=== PATIENT | female | born 1950 | race Caucasian/White ===

== ENCOUNTER 2022-08-01 12:32 | Emergency (ER) | payer OTHER, SELFPAY ==
[2022-08-01 12:47] VITALS: BP 145/86; PULSE 75; RESP 18; TEMP 36.8; O2SAT 98; BMI 28.5
--- NOTE | 2022-08-01 15:13 | ED.NAVMDI ---
HPI - Nausea/Vomiting/Diarrhea General Date Seen: 08/01/22 <Amando Hardwick MD - Last Filed: 08/02/22 20:45> Chief complaint: Nausea/Vomiting <Amando Hardwick MD - Last Filed: 08/02/22 20:45> Stated complaint: Vomiting Headache <Amando Hardwick MD - Last Filed: 08/02/22 20:45> Time Seen by Provider: 08/01/22 14:45 <Amando Hardwick MD - Last Filed: 08/02/22 20:45> Source: patient and family <Amando Hardwick MD - Last Filed: 08/02/22 20:45> Mode of arrival: ambulatory <Amando Hardwick MD - Last Filed: 08/02/22 20:45> Limitations: no limitations <Amando Hardwick MD - Last Filed: 08/02/22 20:45> History of Present Illness HPI Narrative: Patient is a nice 71-year-old female presents here with her sister who she lives with with a history of abdominal pain for 6 days. The pain started last Sunday, lasted only 3 days, but now is been replaced with and concurrently nausea and vomiting. She did have a normal bowel movement yesterday, tells me she is not passing gas, no fevers or chills, but feels very weak, she has vomited 3 times in the last 24 hours and just really does not want to eat anything. Slight headache associated with this across her orthodoxy region, she feels that this is more related to the vomiting however and is feeling weak. She called the [facility] and they directed her to the ER soon as they her that she had a headache. She has been unable to take her medications for the last 2-3 days. She does have a history of a previous duodenal switch, gastric sleeve, for weight loss, and a subsequent hiatal hernia repair. Also has had a cholecystectomy and appendectomy, history of breast cancer, with treatment, and then breast reconstruction. <Amando Hardwick MD - Last Filed: 08/02/22 20:45> MD elicited complaint: nausea, vomiting and abdominal pain <Amando Hardwick MD - Last Filed: 08/02/22 20:45> Onset (ago): day(s) <Amando Hardwick MD - Last Filed: 08/02/22 20:45> Associated nausea: Yes <Amando Hardwick MD - Last Filed: 08/02/22 20:45> Location of pain: none <Amando Hardwick MD - Last Filed: 08/02/22 20:45> Radiation: diffuse <Amando Hardwick MD - Last Filed: 08/02/22 20:45> Related Data Home medications: Previous Rx's Medication Instructions Recorded benazepril 40 mg tablet 40 mg PO QDAY #30 tabs 01/04/22 venlafaxine 75 mg tablet 75 mg PO BID #60 tabs 01/04/22 tamoxifen 20 mg tablet 20 mg PO QDAY #90 tabs 03/27/22 ondansetron 4 mg disintegrating 4 mg PO Q8H PRN nausea and 08/01/22 tablet vomiting #10 tabs <Amando Hardwick MD - Last Filed: 08/02/22 20:45> Allergies/Adverse reactions: Allergies Allergy/AdvReac Type Severity Reaction Status Date / Time codeine Allergy Mild Headache Verified 08/01/22 15:47 <Amando Hardwick MD - Last Filed: 08/02/22 20:45> Review of Systems Status of ROS: Reports: 10 or more systems reviewed and unremarkable except as noted in History and below <Amando Hardwick MD - Last Filed: 08/02/22 20:45> GI: Reports: nausea <Amando Hardwick MD - Last Filed: 08/02/22 20:45> PFSH PFSH Medical History: Medical History Invasive ductal carcinoma of left breast Osteoporosis <Amando Hardwick MD - Last Filed: 08/02/22 20:45> Social History: Social History Smoking Status: Never smoker How often do you have a drink containing alcohol: monthly or less How often do you have six or more drinks on one occasion: Never AUDIT-C Alcohol total score: 1 Non-prescribed substance use: denies use service: No <Amando Hardwick MD - Last Filed: 08/02/22 20:45> Exam Narrative: Exam Narrative: Patient is seen in room 4, with her sister, she is in no apparent distress. Patient is speaking normally,no problem with slurring words, oriented x3. Head eyes ears nose and throat exam show equal pupils, no scleral icterus, extraocular muscles are normal, no facial droop, speech is normal, trachea normal and midline. Thyroid normal midline palpable not enlarged. Chest shows symmetrical rise bilaterally, normal auscultation with no wheezes, no increased work of breathing, no overt bruising or lesions seen, no tenderness is noted on auscultation. Heart sounds normal with no S3-S4 no murmurs clicks or gallops. Abdomen shows no obvious masses or hepatosplenomegaly, no organomegaly, bowel sounds are normal in all quadrants. No tenderness is noted also in all quadrants. Upper and lower extremities show normal power, normal range of motion, pulses are normal, sensations normal, fine motor movements are normal, pelvis is stable to rocking. Cervical spine shows normal range of motion, and palpably not tender. Thoracic spine shows normal range of motion, and palpably not tender, lumbar spine shows no tenderness to palpation percussion and is otherwise normal range of motion. Skin shows no rashes, petechiae or eccymosis. <Amando Hardwick MD - Last Filed: 08/02/22 20:45> Const: Vital Signs, click to edit/add: Vital Signs - 24 hr 08/01/22 12:47 08/01/22 17:28 Temperature 98.2 F Pulse Rate [Right Pulse Oximeter] 75 77 Respiratory Rate 18 16 Blood Pressure [Ri ght Upper Arm] 145/86 H 141/59 H Pulse Oximetry 98 99 Oxygen Delivery Me thod Room Air Room Air <Amando Hardwick MD - Last Filed: 08/02/22 20:45> Vital Signs, click to edit/add: Vital Signs - 24 hr 08/01/22 12:47 08/01/22 17:28 Temperature 98.2 F Pulse Rate [Right Pulse Oximeter] 75 77 Respiratory Rate 18 16 Blood Pressure [Ri ght Upper Arm] 145/86 H 141/59 H Pulse Oximetry 98 99 Oxygen Delivery Me thod Room Air Room Air <Cydney Lange MD - Last Filed: 08/01/22 18:43> Course Reevaluation(s) Reevaluation #1: Reviewed with patient the normal labs. Her headache is gone after IV fluids. She feels that she improved as far as abdominal pain when she quit eating, feels that she has been doing good with fluids orally. Reviewed that labs are very reassuring, her lack of abdominal pain is too. This may have been viral gastroenteritis process. They wondered about GERD, reviewed with them that this is doubtful to be presentation of this alone. Can have increased symptoms like GERD with other GI processes like gastroenteritis. We will try some broth and crackers; if she tolerates this, likely discharge to home with zofran for further period of observation. If not tolerating this, proceed with CT. <Cydney Lange MD - Last Filed: 08/01/22 18:43> Time: 17:40 <Cydney Lange MD - Last Filed: 08/01/22 18:43> Reevaluation #2: Patient tolerated the broth and crackers, is feeling fine. We will discharge to home with a prescription for Zofran. They have been counseled on signs and symptoms for return. <Cydney Lange MD - Last Filed: 08/01/22 18:43> Time: 18:40 <Cydney Lange MD - Last Filed: 08/01/22 18:43> Vital Signs Vital signs: Initial Vital Signs Temperature 98.2 F 08/01/22 12:47 Temperature Source Temporal Artery Scan 08/01/22 12:47 Pulse Rate 75 08/01/22 12:47 Respiratory Rate 18 08/01/22 12:47 Blood Pressure 145/86 H 08/01/22 12:47 Blood Pressure Mean 105 08/01/22 12:47 Blood Pressure Position Sitting 08/01/22 12:47 Pulse Oximetry 98 08/01/22 12:47 Oxygen Delivery Method 08/01/22 12:47 Vital Signs Temperature 98.2 F 08/01/22 12:47 Pulse Rate 75 08/01/22 12:47 Respiratory Rate 18 08/01/22 12:47 Blood Pressure 145/86 H 08/01/22 12:47 Pulse Oximetry 98 08/01/22 12:47 Oxygen Delivery Method 08/01/22 12:47 Temperature 98.2 F 08/01/22 12:47 Pulse Rate 77 08/01/22 17:28 Respiratory Rate 16 08/01/22 17:28 Blood Pressure 141/59 H 08/01/22 17:28 Pulse Oximetry 99 08/01/22 17:28 Oxygen Delivery Method 08/01/22 17:28 <Amando Hardwick MD - Last Filed: 08/02/22 20:45> Initial Vital Signs Temperature 98.2 F 08/01/22 12:47 Temperature Source Temporal Artery Scan 08/01/22 12:47 Pulse Rate 75 08/01/22 12:47 Respiratory Rate 18 08/01/22 12:47 Blood Pressure 145/86 H 08/01/22 12:47 Blood Pressure Mean 105 08/01/22 12:47 Blood Pressure Position Sitting 08/01/22 12:47 Pulse Oximetry 98 08/01/22 12:47 Oxygen Delivery Method 08/01/22 12:47 Vital Signs Temperature 98.2 F 08/01/22 12:47 Pulse Rate 75 08/01/22 12:47 Respiratory Rate 18 08/01/22 12:47 Blood Pressure 145/86 H 08/01/22 12:47 Pulse Oximetry 98 08/01/22 12:47 Oxygen Delivery Method 08/01/22 12:47 Temperature 98.2 F 08/01/22 12:47 Pulse Rate 77 08/01/22 17:28 Respiratory Rate 16 08/01/22 17:28 Blood Pressure 141/59 H 08/01/22 17:28 Pulse Oximetry 99 08/01/22 17:28 Oxygen Delivery Method 08/01/22 17:28 <Cydney Lange MD - Last Filed: 08/01/22 18:43> MDM - Nausea/Vomiting/Diarrhea MDM Narrative Medical decision making narrative: Differential diagnosis includes but is not limited to viral gastroenteritis, drug food poisoning, pyloric stenosis, gastritis, pancreatitis, hepatitis, cholecystitis, appendicitis, bowel obstruction, hyperemesis, cyclic vomiting syndrome, bulimia nervosa, migraine headache, motion sickness and medication side effect. These include the life threatening complications of appendicitis, drug food poisoning and bowel obstruction. <Amando Hardwick MD - Last Filed: 08/02/22 20:45> Medical Records Attestation: I reviewed the patient's medical records. <Amando Hardwick MD - Last Filed: 08/02/22 20:45> Lab Data Attestation: I reviewed the patient's lab results. <Cydney Lange MD - Last Filed: 08/01/22 18:43> Labs: Lab Results 08/01/22 08/01/22 08/01/22 Range/Units 15:00 15:14 15:28 WBC 4.83 (4.50-11.00) K/uL RBC 4.44 (4.00-5.20) m/uL Hgb 13.5 (12.0-16.0) gm/dL Hct 42.6 (33.0-51.0) % MCV 96 (80-100) fL MCH 30 (26-34) pg MCHC 32 (32-36) gm/dL RDW Coeff of Samir 13.0 (11.5-15.5) % Plt Count 200 (140-440) K/uL Neut % (Auto) 64.8 (42.0-72.0) % Lymph % (Auto) 19.9 L (20-44) % Armstrong % (Auto) 11.2 H (0.0-11.0) % Eos % (Auto) 3.5 (0.0-7.0) % Baso % (Auto) 0.4 (0.0-3.0) % Neut # (Auto) 3.13 (1.7-7.0) K/uL Lymph # (Auto) 1.00 (0.90-2.90) K/uL Armstrong # (Auto) 0.50 (0.00-0.90) K/UL Eos # (Auto) 0.17 (0.00-0.50) K/uL Baso # (Auto) 0.02 (0.00-0.30) K/uL Sodium (135-149) mmol/L Potassium (3.6-5.1) mmol/L Chloride (96-114) mmol/L Carbon Dioxide (20-32) mmol/L BUN (7-30) mg/dL Creatinine (0.5-1.5) mg/dL Estimated Creat Clear Estimated GFR ml/min Glucose (60-115) mg/dL Lactate (0.5-1.9) mmol/L Calcium (8.4-10.6) mg/dL Total Bilirubin (0.1-1.5) mg/dL Direct Bilirubin (0.0-0.5) mg/dL AST (12-35) U/L ALT (4-35) U/L Alkaline Phosphatase (40-150) U/L C-Reactive Protein (0.5-1.0) mg/dL Total Protein (6.0-8.3) g/dL Albumin (3.3-5.0) g/dL Amylase (18-89) U/L Lipase (23-300) U/L Procalcitonin (<0.50) ng/mL Ethyl Alcohol (0.01-0.03) % SARS-CoV-2 (PCR) Negative SARS-CoV-2 (Negative) Influenza Type A (PCR) Negative PCR FLU A (Negative) Influenza Type B (PCR) Negative PCR FLU B (Negative) RSV (PCR) Negative PCR RSV (Negative) POC Troponin I 0.01 (0.01-0.04) ng/ml 08/01/22 08/01/22 08/01/22 Range/Units 15:28 15:28 15:28 WBC (4.50-11.00) K/uL RBC (4.00-5.20) m/uL Hgb (12.0-16.0) gm/dL Hct (33.0-51.0) % MCV (80-100) fL MCH (26-34) pg MCHC (32-36) gm/dL RDW Coeff of Samir (11.5-15.5) % Plt Count (140-440) K/uL Neut % (Auto) (42.0-72.0) % Lymph % (Auto) (20-44) % Armstrong % (Auto) (0.0-11.0) % Eos % (Auto) (0.0-7.0) % Baso % (Auto) (0.0-3.0) % Neut # (Auto) (1.7-7.0) K/uL Lymph # (Auto) (0.90-2.90) K/uL Armstrong # (Auto) (0.00-0.90) K/UL Eos # (Auto) (0.00-0.50) K/uL Baso # (Auto) (0.00-0.30) K/uL Sodium 143 (135-149) mmol/L Potassium 3.5 L (3.6-5.1) mmol/L Chloride 108 (96-114) mmol/L Carbon Dioxide 25 (20-32) mmol/L BUN 11 (7-30) mg/dL Creatinine 0.8 (0.5-1.5) mg/dL Estimated Creat Clear 38.94 Estimated GFR 79 ml/min Glucose 93 (60-115) mg/dL Lactate 0.8 (0.5-1.9) mmol/L Calcium 9.5 (8.4-10.6) mg/dL Total Bilirubin 0.7 (0.1-1.5) mg/dL Direct Bilirubin 0.3 (0.0-0.5) mg/dL AST 38 H (12-35) U/L ALT 33 (4-35) U/L Alkaline Phosphatase 100 (40-150) U/L C-Reactive Protein < 0.5 L (0.5-1.0) mg/dL Total Protein 8.0 (6.0-8.3) g/dL Albumin 4.6 (3.3-5.0) g/dL Amylase 133 H (18-89) U/L Lipase 202 (23-300) U/L Procalcitonin < 0.03 L (<0.50) ng/mL Ethyl Alcohol < 0.01 L (0.01-0.03) % SARS-CoV-2 (PCR) (Negative) Influenza Type A (PCR) (Negative) Influenza Type B (PCR) (Negative) RSV (PCR) (Negative) POC Troponin I (0.01-0.04) ng/ml <Amando Hardwick MD - Last Filed: 08/02/22 20:45> Lab Results 08/01/22 08/01/22 08/01/22 Range/Units 15:00 15:14 15:28 WBC 4.83 (4.50-11.00) K/uL RBC 4.44 (4.00-5.20) m/uL Hgb 13.5 (12.0-16.0) gm/dL Hct 42.6 (33.0-51.0) % MCV 96 (80-100) fL MCH 30 (26-34) pg MCHC 32 (32-36) gm/dL RDW Coeff of Samir 13.0 (11.5-15.5) % Plt Count 200 (140-440) K/uL Neut % (Auto) 64.8 (42.0-72.0) % Lymph % (Auto) 19.9 L (20-44) % Armstrong % (Auto) 11.2 H (0.0-11.0) % Eos % (Auto) 3.5 (0.0-7.0) % Baso % (Auto) 0.4 (0.0-3.0) % Neut # (Auto) 3.13 (1.7-7.0) K/uL Lymph # (Auto) 1.00 (0.90-2.90) K/uL Armstrong # (Auto) 0.50 (0.00-0.90) K/UL Eos # (Auto) 0.17 (0.00-0.50) K/uL Baso # (Auto) 0.02 (0.00-0.30) K/uL Sodium (135-149) mmol/L Potassium (3.6-5.1) mmol/L Chloride (96-114) mmol/L Carbon Dioxide (20-32) mmol/L BUN (7-30) mg/dL Creatinine (0.5-1.5) mg/dL Estimated Creat Clear Estimated GFR ml/min Glucose (60-115) mg/dL Lactate (0.5-1.9) mmol/L Calcium (8.4-10.6) mg/dL Total Bilirubin (0.1-1.5) mg/dL Direct Bilirubin (0.0-0.5) mg/dL AST (12-35) U/L ALT (4-35) U/L Alkaline Phosphatase (40-150) U/L C-Reactive Protein (0.5-1.0) mg/dL Total Protein (6.0-8.3) g/dL Albumin (3.3-5.0) g/dL Amylase (18-89) U/L Lipase (23-300) U/L Procalcitonin (<0.50) ng/mL Ethyl Alcohol (0.01-0.03) % SARS-CoV-2 (PCR) Negative SARS-CoV-2 (Negative) Influenza Type A (PCR) Negative PCR FLU A (Negative) Influenza Type B (PCR) Negative PCR FLU B (Negative) RSV (PCR) Negative PCR RSV (Negative) POC Troponin I 0.01 (0.01-0.04) ng/ml 08/01/22 08/01/22 08/01/22 Range/Units 15:28 15:28 15:28 WBC (4.50-11.00) K/uL RBC (4.00-5.20) m/uL Hgb (12.0-16.0) gm/dL Hct (33.0-51.0) % MCV (80-100) fL MCH (26-34) pg MCHC (32-36) gm/dL RDW Coeff of Samir (11.5-15.5) % Plt Count (140-440) K/uL Neut % (Auto) (42.0-72.0) % Lymph % (Auto) (20-44) % Armstrong % (Auto) (0.0-11.0) % Eos % (Auto) (0.0-7.0) % Baso % (Auto) (0.0-3.0) % Neut # (Auto) (1.7-7.0) K/uL Lymph # (Auto) (0.90-2.90) K/uL Armstrong # (Auto) (0.00-0.90) K/UL Eos # (Auto) (0.00-0.50) K/uL Baso # (Auto) (0.00-0.30) K/uL Sodium 143 (135-149) mmol/L Potassium 3.5 L (3.6-5.1) mmol/L Chloride 108 (96-114) mmol/L Carbon Dioxide 25 (20-32) mmol/L BUN 11 (7-30) mg/dL Creatinine 0.8 (0.5-1.5) mg/dL Estimated Creat Clear 38.94 Estimated GFR 79 ml/min Glucose 93 (60-115) mg/dL Lactate 0.8 (0.5-1.9) mmol/L Calcium 9.5 (8.4-10.6) mg/dL Total Bilirubin 0.7 (0.1-1.5) mg/dL Direct Bilirubin 0.3 (0.0-0.5) mg/dL AST 38 H (12-35) U/L ALT 33 (4-35) U/L Alkaline Phosphatase 100 (40-150) U/L C-Reactive Protein < 0.5 L (0.5-1.0) mg/dL Total Protein 8.0 (6.0-8.3) g/dL Albumin 4.6 (3.3-5.0) g/dL Amylase 133 H (18-89) U/L Lipase 202 (23-300) U/L Procalcitonin < 0.03 L (<0.50) ng/mL Ethyl Alcohol < 0.01 L (0.01-0.03) % SARS-CoV-2 (PCR) (Negative) Influenza Type A (PCR) (Negative) Influenza Type B (PCR) (Negative) RSV (PCR) (Negative) POC Troponin I (0.01-0.04) ng/ml <Cydney Lange MD - Last Filed: 08/01/22 18:43> ECG Data Attestation: I personally reviewed and interpreted this ECG as follows: (sinus rhythm, 70 bpm, no acute change noted.) <Cydney Lange MD - Last Filed: 08/01/22 18:43> Prior ECG tracings: not available for review <Cydney Lange MD - Last Filed: 08/01/22 18:43> Discharge Plan Discharge Clinical Impression: Nausea and vomiting <Amando Hardwick MD - Last Filed: 08/02/22 20:45> Patient Disposition: Home, Self-Care <Amando Hardwick MD - Last Filed: 08/02/22 20:45> Condition: Stable <Amando Hardwick MD - Last Filed: 08/02/22 20:45> Instructions: Gastroenteritis (ED), Acute Nausea and Vomiting (ED) <Amando Hardwick MD - Last Filed: 08/02/22 20:45> Additional Instructions: Hopefully this was a self-limited viral gastroenteritis. You can use Zofran for any recurrence of mild nausea and vomiting. However, if the nausea vomiting is ongoing be on 20/4 to 48 hours, abdominal pain returns, develop a fever with this, do need you to be re-evaluated. I encourage you to drink plenty of fluids, you can advance your diet back to normal as tolerated. Understand that you may need to eat smaller amounts in eat more frequently initially. <Amando Hardwick MD - Last Filed: 08/02/22 20:45> Activity Level: Activity as Tolerated <Amando Hardwick MD - Last Filed: 08/02/22 20:45> Activity as Tolerated <Cydney Lange MD - Last Filed: 08/01/22 18:43> Prescriptions: New ondansetron 4 mg tablet,disintegrating 4 mg PO Q8H PRN (Reason: nausea and vomiting) Qty: 10 0RF No Action venlafaxine 75 mg tablet 75 mg PO BID Qty: 60 0RF benazepril 40 mg tablet 40 mg PO QDAY Qty: 30 0RF tamoxifen 20 mg tablet 20 mg PO QDAY Qty: 90 0RF <Amando Hardwick MD - Last Filed: 08/02/22 20:45> Follow Up/Referrals: Jo-Ann Thomas MD [Staff Physician] - <Amando Hardwick MD - Last Filed: 08/02/22 20:45> Stand Alone Forms: My[facility] Info Instructions <Amando Hardwick MD - Last Filed: 08/02/22 20:45> Critical Care Time Critical Care Time Critical Care Time: No <Cydney Lange MD - Last Filed: 08/01/22 18:43>
[2022-08-01 15:33] LABS: Lactate* 0.8 mmol/L (0.5-1.9)
[2022-08-01 15:35] LABS: Basophils Absolute Auto 0.02 K/uL (0.00-0.30); Basophils Percent Auto 0.4 % (0.0-3.0); Eosinophils Absolute Auto 0.17 K/uL (0.00-0.50); Eosinophils Percent Auto 3.5 % (0.0-7.0); Hematocrit 42.6 % (33.0-51.0); Hemoglobin* 13.5 gm/dL (12.0-16.0); Immature Granulocytes Abs Auto 0.01 K/uL (0.00-0.30); Immature Granulocytes Pct Auto 0.2 %; Lymphocytes Percent Auto 19.9 % (20-44); Mean Corpuscular HGB Conc 32 gm/dL (32-36); Mean Corpuscular Hemoglobin 30 pg (26-34); Mean Corpuscular Volume 96 fL (80-100); Monocytes Percent Auto 11.2 % (0.0-11.0); Neutrophils Absolute Auto 3.13 K/uL (1.7-7.0); Neutrophils Percent Auto 64.8 % (42.0-72.0); Platelet Count* 200 K/uL (140-440); Red Blood Count 4.44 m/uL (4.00-5.20); White Blood Count* 4.83 K/uL (4.50-11.00)
[2022-08-01 15:36] LABS: Slide Review Reflex No
[2022-08-01 15:46] LABS: Troponin, Point-of-Care* 0.01 ng/ml (0.01-0.04)
[2022-08-01] MEDS: 0.9 % SODIUM CHLORIDE 1000 ml 1,000 ML IV (15:47)
[2022-08-01] MEDS: ONDANSETRON 2 MG/ML inj 4 MG IVP (15:48)
[2022-08-01 15:50] LABS: Albumin* 4.6 g/dL (3.3-5.0); Chloride* 108 mmol/L (96-114)
[2022-08-01 15:51] LABS: Potassium* 3.5 mmol/L (3.6-5.1); Sodium* 143 mmol/L (135-149)
[2022-08-01 15:53] LABS: Amylase* 133 U/L (18-89); Aspartate Amino Transferase* 38 U/L (12-35); Bilirubin Direct* 0.3 mg/dL (0.0-0.5); Bilirubin Total* 0.7 mg/dL (0.1-1.5); Blood Urea Nitrogen* 11 mg/dL (7-30); Carbon Dioxide* 25 mmol/L (20-32); Creatinine* 0.8 mg/dL (0.5-1.5); Est. Creatinine Clearance* 38.94; Estimated Glomerular Filt Rate 79 ml/min
[2022-08-01 15:54] LABS: Alanine Aminotransferase* 33 U/L (4-35); Alkaline Phosphatase* 100 U/L (40-150); Calcium* 9.5 mg/dL (8.4-10.6); Glucose* 93 mg/dL (60-115); Lipase* 202 U/L (23-300)
[2022-08-01 16:05] LABS: C Reactive Protein* < 0.5 mg/dL (0.5-1.0); Ethanol* < 0.01 % (0.01-0.03)
[2022-08-01 16:12] LABS: PCR FLU A Negative PCR FLU A (Negative); PCR FLU B Negative PCR FLU B (Negative); PCR RSV Negative PCR RSV (Negative)
[2022-08-01 16:19] LABS: SARS PCR* Negative SARS-CoV-2 (Negative)
[2022-08-01 16:19] LABS: Procalcitonin* < 0.03 ng/mL (<0.50)
[2022-08-01 17:28] VITALS: BP 141/59; PULSE 77; RESP 16; O2SAT 99
== END 2022-08-01 18:57 | disposition home or self-care (01) ==
PROVIDERS: Family Medicine; Emergency Provider Family Medicine; PCP Family Medicine
DX: R11.2 Nausea with vomiting, unspecified (principal)
CPT/HCPCS: 36415; 80048; 80076; 82077; 82150; 83605; 83690; 84145; 84484; 85025; 86140; 87502; 87634; 87635; 93005; 96374; 99283; 99284; J2405; J7030

== ENCOUNTER 2022-09-22 12:40 | Outpatient (RCR) | payer OTHER, SELFPAY | END 2023-03-21 23:59 | disposition home or self-care (01) | LOC: CCIC 12:40 | PROVIDERS: PCP Family Medicine; Visit Provider Nurse Practitioner Family | DX: C50.912 Malignant neoplasm of unspecified site of left female breast (principal); Z17.0 Estrogen receptor positive status [ER+]; M81.0 Age-related osteoporosis without current pathological fracture; Z79.810 Long term (current) use of selective estrogen receptor modulators (SERMs) | CPT/HCPCS: 99212; 99214 ==

== ENCOUNTER 2023-01-09 10:30 | Outpatient (RCR) | payer OTHER, SELFPAY | END 2023-05-09 23:59 | disposition home or self-care (01) | PROVIDERS: PCP Family Medicine; Visit Provider Family Medicine | DX: M54.10 Radiculopathy, site unspecified (principal); Z51.89 Encounter for other specified aftercare | CPT/HCPCS: 97110; 97112; 97140; 97161 ==

== ENCOUNTER 2023-04-17 08:32 | Outpatient (CLI) | payer OTHER, SELFPAY ==
--- NOTE | 2023-04-17 08:45 | CRLHL7_ITS ---
For Patients: As a result of the 21st Century Cures Act, medical imaging exams and procedure reports are released immediately into your electronic medical record. You may view this report before your referring provider. If you have questions, please contact your health care provider. DIGITAL DIAGNOSTIC RIGHT MAMMOGRAM USING TOMOSYNTHESIS AND COMPUTER-AIDED DETECTION RIGHT BREAST ULTRASOUND INDICATION: 72-year-old female. History of LEFT breast cancer status post mastectomy and implant. Reportedly no lymph nodes were involved. Radiation therapy. No chemotherapy. Pain and lump inferomedial RIGHT breast. Possible lumps in the anterior LEFT chest wall or LEFT axilla. TECHNIQUE: CC and MLO views were obtained. This digital study was evaluated the assistance of computer-aided detection. Digital breast tomosynthesis utilized. COMPARISON: 12/07/2021, 02/15/2021. MAMMOGRAM FINDINGS: Breast Composition: The breast is heterogeneously dense, which may obscure small masses. Few punctate benign calcifications are identified. These are stable. Minimal vascular calcification. No underlying mass. No architecture distortion. No suspicious microcalcifications. No abnormality in the inferomedial RIGHT breast in the area of the patient`s pain and/or palpable abnormality. Ultrasound is recommended for further evaluation and will be performed subsequently. IMPRESSION: Stable and negative mammogram. TECHNIQUE: Directed RIGHT breast, LEFT chest wall, and LEFT axillary ultrasound. ULTRASOUND FINDINGS: The RIGHT breast is carefully scanned between the 3 and 6 o`clock position. At the 4 o`clock position 6 cm from the nipple is a well-circumscribed 3.5 x 3.5 x 2.5 cm hypoechoic solid nodule without blood flow. No increased through-transmission of sound. This is indeterminate. Given the patient`s reported LEFT-sided breast cancer, biopsy may be required. The LEFT chest wall above the LEFT breast implant was carefully scanned. No underlying mass. No subcutaneous nodules. The LEFT axillary ultrasound was also performed demonstrating a single small nonpathologically enlarged normal-appearing lymph node. No LEFT axillary lymphadenopathy identified. These findings were discussed in detail with the patient and the patient`s sister who is a retired nurse. They are favoring an ultrasound-guided biopsy of the incidentally noted lesion on the RIGHT. This will be scheduled. IMPRESSION: 1. Nearly 4 mm solid nodule inferomedial RIGHT breast 4 o`clock position 6 cm from the nipple. This is indeterminate. As well circumscribed. Ultrasound-guided biopsy is suggested. 2. Negative directed LEFT breast and LEFT axillary ultrasound. BI-RADS Category 4: Suspicious Dictated by: Natalio Gomes MD @04/17/2023 10:37:17 AM /Dictated by: Natalio Gomes MD @ 04/17/2023 10:35:00 AM (Electronically Signed)
--- NOTE | 2023-04-17 09:15 | CRLHL7_ITS ---
For Patients: As a result of the Cures Act, medical imaging exams and procedure reports are released immediately into your electronic medical record. You may view this report before your referring provider. If you have questions, please contact your health care provider. PLEASE SEE DIGITAL DIAGNOSTIC RIGHT MAMMOGRAM PERFORMED SAME DAY CRL:[email or web address]/Dictated by: Natalio Gomes MD @ 04/17/2023 10:37:00 AM (Electronically Signed)
--- NOTE | 2023-04-17 09:15 | US_ITS ---
Patient: KIMBERLY ANGULO Facility:?[facility] Patient ID:?[id number] Site Patient ID:?[id number]. Site :?[id number] Study:?XRay-Breast Right 3D W/CAD-04/17/2023 9:20:58 AM Ordering Physician:Autumn Cain Final Report: DIGITAL DIAGNOSTIC RIGHT MAMMOGRAM USING TOMOSYNTHESIS AND COMPUTER-AIDED DETECTION RIGHT BREAST ULTRASOUND INDICATION: 72-year-old female. History of LEFT breast cancer status post mastectomy and implant. Reportedly no lymph nodes were involved. Radiation therapy. No chemotherapy. Pain and lump inferomedial RIGHT breast. Possible lumps in the anterior LEFT chest wall or LEFT axilla. TECHNIQUE: CC and MLO views were obtained. This digital study was evaluated the assistance of computer-aided detection. Digital breast tomosynthesis utilized. COMPARISON: 12/07/2021, 02/15/2021. MAMMOGRAM FINDINGS: Breast Composition: The breast is heterogeneously dense, which may obscure small masses. Few punctate benign calcifications are identified. These are stable. Minimal vascular calcification. No underlying mass. No architecture distortion. No suspicious microcalcifications. No abnormality in the inferomedial RIGHT breast in the area of the patient`s pain and/or palpable abnormality. Ultrasound is recommended for further evaluation and will be performed subsequently. IMPRESSION: Stable and negative mammogram. TECHNIQUE: Directed RIGHT breast, LEFT chest wall, and LEFT axillary ultrasound. ULTRASOUND FINDINGS: The RIGHT breast is carefully scanned between the 3 and 6 o`clock position. At the 4 o`clock position 6 cm from the nipple is a well-circumscribed 3.5 x 3.5 x 2.5 cm hypoechoic solid nodule without blood flow. No increased through- transmission of sound. This is indeterminate. Given the patient`s reported LEFT- sided breast cancer, biopsy may be required. The LEFT chest wall above the LEFT breast implant was carefully scanned. No underlying mass. No subcutaneous nodules. The LEFT axillary ultrasound was also performed demonstrating a single small nonpathologically enlarged normal- appearing lymph node. No LEFT axillary lymphadenopathy identified. These findings were discussed in detail with the patient and the patient`s sister who is a retired nurse. They are favoring an ultrasound-guided biopsy of the incidentally noted lesion on the RIGHT. This will be scheduled. IMPRESSION: 1. Nearly 4 mm solid nodule inferomedial RIGHT breast 4 o`clock position 6 cm from the nipple. This is indeterminate. As well circumscribed. Ultrasound-guided biopsy is suggested. 2. Negative directed LEFT breast and LEFT axillary ultrasound. BI-RADS Category 4: Suspicious Dictated by: Natalio Gomes MD @04/17/2023 10:37:17 AM jj/Dictated by: Natalio Gomes MD @ 04/17/2023 10:35:00 AM Signed by:?Natalio Gomes MD @04/18/2023 8:35:07 AM (Electronic Signature)
== END 2023-04-17 08:33 | disposition home or self-care (01) ==
LOC: MAMMO 08:33
PROVIDERS: PCP Family Medicine; Visit Provider Physician Assistant
DX: N63.10 Unspecified lump in the right breast, unspecified quadrant (principal); N63.32 Unspecified lump in axillary tail of the left breast; N64.4 Mastodynia; Z85.3 Personal history of malignant neoplasm of breast
CPT/HCPCS: 76642; 76882; 77065; G0279

== ENCOUNTER 2023-04-30 10:15 | Outpatient (CLI) | payer OTHER, SELFPAY ==
--- NOTE | 2023-04-30 10:15 | CRLHL7_ITS ---
For Patients: As a result of the Century Cures Act, medical imaging exams and procedure reports are released immediately into your electronic medical record. You may view this report before your referring provider. If you have questions, please contact your health care provider. ULTRASOUND-GUIDED BREAST BIOPSY AND POST-BIOPSY DIGITAL MAMMOGRAM FOR BIOPSY MARKER PLACEMENT CLINICAL HISTORY: Indeterminate small hypoechoic lesion right breast, history of left breast cancer COMPARISON STUDIES: 04/17/2023 TECHNIQUE: Real-time ultrasound with image documentation was used for targeting the breast lesion. Core biopsy specimens were obtained using an 18 gauge Temno biopsy needle. Post-biopsy CC and ML digital mammograms were obtained to document position of the biopsy marker. CONSENT and TIME OUT: The procedure, risks, and alternatives were explained to the patient and a consent was signed. [place] Protocol was followed including pre-procedure verification that relevant information/documentation was available, reviewed and properly matched to the patient; consent accurate and complete; and equipment and supplies available. Time Out was conducted just prior to starting procedure to verify the four required elements: patient identity, correct side/site marked (if applicable), procedure, relevant images/results properly labeled and displayed (if applicable). PROCEDURE: The patient was positioned supine on the ultrasound table. The breast was prepped with ChloraPrep. 10 cc of 1 percent lidocaine used for local anesthesia. Core samples were obtained. A sterile metal biopsy clip was placed percutaneously to bahman the lesion position within the breast. The specimens were placed in 10% formalin and sent to the pathology department. Pressure was held on the biopsy site until all bleeding subsided. The skin incision was closed with Steri-Strips. An ice pack was positioned over the biopsy site. Post-biopsy instructions were reviewed with the patient, and a written copy was given to her. LATERALITY: Right breast LESION: Hypoechoic solid nodule measuring 4 millimeters at 4 o`clock 6 cm from the nipple. SUSPICION FOR MALIGNANCY: Medium NUMBER OF SAMPLES: 5 BIOPSY CLIP SHAPE: Oval PROXIMITY OF CLIP TO TARGET: Within the lesion IMPRESSION: Ultrasound-guided breast biopsy. When the pathology report is available, an addendum to this report will be made. ACR not applicable Dictated by Oziel Coe MD @ 04/30/2023 12:27:56 PM ADDENDUM: Pathology consistent with benign lymphoid tissue. No evidence of metastatic disease. No tumor recurrence. This is concordant. Routine clinical follow-up advised. Dictated by: Oziel Coe MD @05/03/2023 11:05:52 AM / CRL:kaylen (Electronically Signed)
--- NOTE | 2023-04-30 11:00 | CRLHL7_ITS ---
For Patients: As a result of the Century Cures Act, medical imaging exams and procedure reports are released immediately into your electronic medical record. You may view this report before your referring provider. If you have questions, please contact your health care provider. PLEASE SEE ULTRASOUND-GUIDED RIGHT BREAST BIOPSY PERFORMED SAME DAY CRL:[email or web address]/Dictated by: Oziel Coe MD @ 04/30/2023 3:42:00 PM (Electronically Signed)
== END 2023-04-30 10:16 | disposition home or self-care (01) ==
LOC: US 10:16
PROVIDERS: PCP Family Medicine; Visit Provider Physician Assistant
DX: N63.10 Unspecified lump in the right breast, unspecified quadrant (principal); Z85.3 Personal history of malignant neoplasm of breast
CPT/HCPCS: 19083; 77065; 88305; 88341; 88342; A4648; A4649

== ENCOUNTER 2023-08-09 12:50 | Outpatient (RCR) | payer OTHER, SELFPAY ==
--- NOTE | 2023-08-15 12:08 | ONC.NURNOTE ---
Request for Breast Cancer Index testing and required records faxed to [phone].
== END 2023-10-09 23:59 | disposition home or self-care (01) ==
LOC: CCIC 12:50
PROVIDERS: PCP Family Medicine; Visit Provider Physician Assistant
DX: C50.912 Malignant neoplasm of unspecified site of left female breast (principal); Z17.0 Estrogen receptor positive status [ER+]; Z79.810 Long term (current) use of selective estrogen receptor modulators (SERMs); M81.0 Age-related osteoporosis without current pathological fracture; N64.4 Mastodynia; N63.10 Unspecified lump in the right breast, unspecified quadrant; N63.32 Unspecified lump in axillary tail of the left breast; E03.9 Hypothyroidism, unspecified; G31.84 Mild cognitive impairment of uncertain or unknown etiology
CPT/HCPCS: 99212; 99214; 99215; G0463

== ENCOUNTER 2023-11-21 09:34 | Outpatient (CLI) | payer OTHER, SELFPAY ==
--- OUTSIDE RECORDS SUMMARY | 2023-11-21 09:37 | XMS_ITS | Clinical Summary ---
Author Organization [email or web address] [facility] Address [place], [place] [address] Care Team Providers Care Cutter Grind Tool Technician Name Role Phone eKy Perez DO Primary Care Provider [phone] Allergies Active Allergy Reactions Criticality Noted Date Comments Codeine Headache 04/19/2021 Grass Pollen Rash 04/19/2021 Medications Medication Sig Dispensed Refills Start Date End Date Status tamoxifen (NOLVADEX) 20 mg tablet Take 20 mg by mouth once daily. 12/30/2021 Active Lacto.acidophilus -Bif.animalis 31 billion cell cap Daily Active cholecalciferol (VITAMIN D3) 50,000 unit capsule Take 1 Capsule (50,000 units) by mouth once daily. 0 01/18/2022 Active potassium chloride (K-TAB) 10 mEq extended-release tabletIndications :Hypokalemia Take 1 Tablet (10 mEq) by mouth once daily with a meal. 180 Tablet 3 12/14/2022 Active calcium citrate/vitamin D3 (CITRUS CALCIUM 1500 + D ORAL) Take by mouth. Active acetaminophen (TYLENOL EXTRA STRGTH) 500 mg tablet Take 1 Tablet (500 mg) by mouth two times daily. Max acetaminophen dose: 4000mg in 24 hrs. 0 01/23/2023 Active Benazepril HCl 40 mg tabletIndications :HTN (hypertension) Take 1 Tablet (40 mg) by mouth once daily. 90 Tablet 2 03/16/2023 Active venlafaxine (EFFEXOR) 100 mg tabletIndications :Depression, recurrent (HC) TAKE 1 TABLET(100 MG) BY MOUTH IN THE MORNING AND IN THE EVENING 180 Tablet 3 04/19/2023 Active levothyroxine (SYNTHROID) 88 mcg tabletIndications :Hypothyroidism (acquired) Take 1 Tablet (88 mcg) by mouth before breakfast. 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 oral disturbance, psychotic disturbance, mood disturbance, or anxiety, unspecified dementia type 07/25/2023 Mild neurocognitive disorder 08/17/2022 Depression, recurrent 01/20/2022 Hypokalemia 01/20/2022 HTN (hypertension) 01/20/2022 Hypothyroidism (acquired) 01/20/2022 History of gastric bypass 01/20/2022 Osteoporosis 01/20/2022 History of anemia 01/20/2022 History of breast cancer 01/20/2022 Encounters Date Type Department Care Team Description 10/04/2023 Lab Requisition [facility] [phone] Nabila Alcaraz MD 10/04/2023 Lab Requisition [facility] [phone] Nabila Alacraz MD 09/28/2023 7:01 AM CDT - 09/28/2023 11:59 PM CDT Hospital Encounter [facility] [address] [place] [address] Sir Lomaxi Karolyn, DO Mass of cervix 09/28/2023 Travel 09/26/[address] [address] Nohemy Lomax Karolyn, DO Results (Pelvic US/) 09/25/2023 1:00 PM CDT Ancillary Procedure [address] [address] 09/25/2023 Travel 09/03/2023 10:30 AM REWINDER OPERATOR HELPER Nurse/Clinic Staff Only [address] [address] Immunization/Inject ion (PROLIA INJECTION ) 09/03/2023 Travel 08/28/[address] [address] Isma Hall MD Appointment 08/24/2023 2:30 PM REWINDER OPERATOR HELPER Ancillary Procedure [address] [address] 08/24/2023 1:10 PM REWINDER OPERATOR HELPER Office Visit [facility] [address] [place] [address] Ami Calabrese PA Gi Problem (Pain, nausea and vomiting off and on over the past few months-significant weight drop-this week has not been good-OK Mon,-Tues holding stomach in pain,sometimes feels like a 'twist or fullness') 08/24/2023 Travel from Last 3 Months Immunizations Name Administration Dates Next Due COVID-19 Vaccine Spikevax (M oderna 50mcg/0.5mL) 12YO+ [id number] Formula PF 07/25/2023 COVID-19 vaccine (Moderna 100mcg/0.5mL) PF, MDV 09/26/2020,08/29/2020 COVID-19 vaccine (Pfizer-BioNTech 30mcg/0.3mL) P F, MDV 06/22/2021 Influenza, High-dose Quadrivalent Inactivated Influenza, Inactivated AIIV4 (Age 65+ Years) Preserv Free 03/14/2023,03/08/2022 Pneumococcal Conj 20-valent (Prevnar 20) 022 RSV, Bivalent Vaccine Recons tituted (Abrysvo 120MCG/0.5mL) 05/19/2023 Td, Preservative Free (age >= 7 Years) 0 Zoster (Shingrix-RZV, recombinant) 05/19/2023, Family History Medical History Relation Name Comments Valvular heart disease Father Dementia Mother Relation Name Status Comments Father Mother Social History Tobacco Use Types Packs/Day Years Used Date Smoking Tobacco: Never Smokeless Tobacco: Never Tobacco Cessation:Counseling Given: Yes Alcohol Use Standard Drinks/Week Comments Not Currently 0 (1 standard drink = 0.6 oz pur e alcohol) 1-2 glasses of wine per year PHQ-2 Answer Date Recorded PHQ-2 TOTAL SCORE 1 04/16/2023 Social Connections Answer Date Recorded Frequency of Communication with Friends and Fami ly 0 03/14/2023 Alcohol Use Answer Date Recorded How often do you have a drink containing alcohol ? 1 04/11/2022 How many drinks containing a lcohol do you have on a typical day when you are drinking? 0 04/11/2022 How often do you have five or more drinks on one occasion? 0 04/11/2022 Financial Resource Strain Answer Date R ecorded Difficulty of Paying Living Expenses 3 03/14/2023 Difficulty of Paying Living Expenses Not on file 03/14/2023 Food Insecurity Answer Date Recorded Worried About Running Out of Food in the Last Ye ar 1 03/14/2023 Transportation Needs Answer Date Record ed Lack of Transportation (Medical) 1 03/14/2023 Housing Stability Answer Date Recorded Unable to Pay for Housing in the Last Year 1 03/14/2023 Sex and Gender Information Value Date Recorded Sex Assigned at Not on file Gender Identity Not on file Sexual Orientation Not on file Obstetrics History Para Term AB IAB SAB Ectopic Multiple Livin g Live Births 0 0 0 0 0 0 0 0 0 0 0 Last Filed Vital Signs Vital Sign Reading Time Taken Comments Blood Pressure 120/69 08/24/2023 1:18 PM REWINDER OPERATOR HELPER Pulse 73 08/24/2023 1:18 PM REWINDER OPERATOR HELPER Temperature 37.3 ??C (99.1 ??F) 03/28/2023 4:27 PM CD T Respiratory Rate 18 03/28/2023 4:27 PM CDT Oxygen Saturation 100% 08/24/2023 1:18 PM REWINDER OPERATOR HELPER Inhaled Oxygen Concentration - - Weight 60.3 kg (133 lb) 08/24/2023 1:18 PM REWINDER OPERATOR HELPER Height 158.5 cm (5' 2.4) 04/16/2023 10:48 AM CD T Body Mass Index 24.01 04/16/2023 10:48 AM CDT Plan of Treatment Upcoming Encounters Date Type Department Care Team (Late st Contact Info) Description 11/29/2023 3:10 PM CDT Preop Visit [facility] [address] [place] [address] Key Perez DO [address] [place] [address] 12/03/2023 9:15 AM CDT Office Visit [facility] [address] [place] [phone] Isma Hall MD [address] [place] [address] Health Maintenance Due Date Last Done Comments Tdap 1961 Lipids for age 45-75 10/06/1995 COVID-19 vaccine series (2022- season) 2023 07/25/2023, 05/22/2022, 06/22/2021, Additional history exists Influenza for age 65+ 03/02/2024 03/14/2023 , 03/08/2022, 04/19/2021 Colonoscopy through age 75 03/24/202403/24, 03/24/2021 ([facility] BMI (ht and wt on same day) for age 18+ 04/16/2024 04/16/2023, 04/11/2022, 03/08/2022 Medicare Wellness for age 65+ 04/16/2024 04/16/2023, 04/11/2022 Depression screening for age 12+ 04/18/2024 04/18/2023, 04/18/2023, 04/16/2023, Additional history exists Mammogram for age 45-75 04/30/2024 04/30/20 23, 04/17/2023, 03/02/2020 Tetanus booster 03/16/2030 03/16/2020 Pneumococcal series for age 65+ Completed DEXA/DXA scan for age 65+ Completed 10/30/2022 Hepatitis C screening for ag e 18-79 Completed 01/23/2023 Zoster (shingles) series for age 50+ Completed 05/19/2023, 12/12/2022 Procedures Procedure Name Priority Date/Time Associated Diagnosis Comments LAB TRACKING EVENT Routine 10/03/2023 8: 50 AM CDT LAB TRACKING EVENT Routine 10/03/2023 8: 50 AM CDT PATH TISSUE EXAM Routine 10/03/2023 8:50 AM CDT FOLDED TOWEL MACHINE OPERATOR THIN PREP PAP SCREEN IMAGED Routine 10/03/2023 8:50 AM CDT HPV THIN PREP Routine 10/03/2023 8:50 AM CDT MR PELVIS WWO AIYANA 09/28/2023 8:00 AM CDT Mass of cervix US PELVIS COMPLETE TA AND TV Routine 09/25/2023 1:34 PM CDT Mass of uterus CT ABDOMEN PELVIS W STAT 08/24/2023 2 :55 PM REWINDER OPERATOR HELPER Upper abdominal pain Nausea and vomiting, unspecified vomiting type CREATININE,ISTAT Routine 08/24/2023 2:26 PM REWINDER OPERATOR HELPER Observation or evaluation for suspected condition CBC WITH AUTO DIFFERENTIAL Routine 08/24/2023 2:01 PM REWINDER OPERATOR HELPER Upper abdominal pain Nausea and vomiting, unspecified vomiting type C-REACTIVE PROTEIN Routine 08/24/2023 2: 01 PM REWINDER OPERATOR HELPER Upper abdominal pain Nausea and vomiting, unspecified vomiting type LIPASE Routine 08/24/2023 2:01 PM REWINDER OPERATOR HELPER Upper abdominal pain Nausea and vomiting, unspecified vomiting type COMP METABOLIC PANEL Routine 08/24/2023 2:01 PM REWINDER OPERATOR HELPER Upper abdominal pain Nausea and vomiting, unspecified vomiting type CBC WITH AUTO DIFFERENTIAL Routine 08/24/2023 2:01 PM REWINDER OPERATOR HELPER Upper abdominal pain Nausea and vomiting, unspecified vomiting type SCAN-MAMMOGRAPHY REPORT 04/30/2023 12:00 AM CDT LC HCV ANTIBODY RFX TO QUANT PCR Routine 01/23/2023 12:00 PM CDT Need for hepatitis C screening test XR DXA BONE DENSITY 2 SITES AXIAL Routine 10/30/2022 12:00 PM CDT Osteoporosis, unspecified osteoporosis type, unspecified pathological fracture presence SCAN-COLONOSCOPY 03/24/2021 12:0 0 AM CDT from Last 3 Months or Most Recently Relevant to Health Maintenance Results * LAB TRACKING EVENT (10/03/2023 8:50 AM CDT) Only the most recent of2 resultswithin the time period is included. Other (Other) Client Collect / Unknown 10/03/2023 8:50 AM CDT 10/04/2023 3:16 PM CDT Nabila Alcaraz MD LAB BILL O NLY [facility] [address] [place] [address], * FOLDED TOWEL MACHINE OPERATOR THIN PREP PAP SCREEN IMAGED (10/03/2023 8:50 AM CDT) Case Report Gynecologic Cytology Report ? Case: [id number] ? Authorizing Provider: ??Nabila Alcaraz ?Collected: ? 10/03/2023 0850 ? MD Esther ? Ordering Location: ? [facility] ?Received: ?10/04/2023 1701 ? First Screen: ?Baccam, Minie ? Rescreen: ?Jacki Strauss ? Specimen: ?FOLDED TOWEL MACHINE OPERATOR ThinPrep Vial Screening, Cervical ? 10/19/2023 11:33 AM CDT [facility] INTERPRETATION/ RESULT NEGATIVE FOR INTRAEPITHELIAL LESION OR MALIGNANCY (NIL) (none) 10/19/2023 11:33 AM T [facility] IMEN ADEQUACY Satisfactory for evaluation No endocervical component seen Scant cellularity 10/19/2023 11:33 AM CDT [facility] HPV REQUEST HPV and PAP 10/19/2023 11:33 AM CDT [facility] Abnormal Pap or [place] Bx in last 5 years No 10/19/2023 11:33 AM CDT [facility] Menstrual Status Postmenopausal 10/19/2023 11:33 AM CDT [facility] [place] Bx Done Today No 10/19/2023 11:33 AM CDT [facility] Additional Information 10/19/2023 11:33 AM CDT [facility] Comment: Interpreted at [facility] - [address], [place] [address] Automated Review Successful 10/19/2023 11:33 AM CDT [facility] Comment:Specimen processed s uccessfully by automated outsole leveler device, ThinPrep Imaging System, [employer] ANCILLARY TESTING FOLDED TOWEL MACHINE OPERATOR HPV Ordered, Please see separate report 10/19/2023 11:33 AM CDT [facility] Note The pap test is a screening technique, not a diagnostic procedure. It is used primarily to screen for squamous cancers and precursor lesions. Published studies have shown that it is subject to both false negative and false positive results. The pap test should not be used as the sole means to diagnose or exclude pre-malignant and malignant lesions. 10/19/2023 11:33 AM CDT [facility] [employer] [facility] Other (Cervical) 10/03/2023 8:50 AM CDT 10/04/2023 5:01 PM CDT Nabila Alcaraz MD PATHOLOGY/ CYTOLOGY [facility] [address] [place] [address], * PATH TISSUE EXAM (10/03/2023 8:50 AM CDT) Case Report Pathology Report ?Case: [id number] ? Authorizing Provider: ??Nabila Alcaraz ?Collected: ? 10/03/2023 0850 ? MD Esther ? Ordering Location: ? [facility] ?Received: ?10/04/2023 1615 ? Pathologist: ? Christina Carrizales MD ? Specimen: ?Endocervical Curettings, ECC ? 2023 3:56 PM CDT [facility] [employer] [facility] Final Diagnosis A) ENDOCERVIX, CURETTAGE: 1. Very scant fragments of benign endocervical and ectocervical epithelium with reactive/metaplast ic changes; See comment 2. Negative for glandular neoplasia, squamous intraepithelial lesion, and malignancy 2023 3:56 PM T [facility] Comment The clinical/imaging impression of a 3.3 cm cervical mass is noted. The specimen is scant and definitive features of atypia/neoplasia are not seen. If the clinical impression does not correlate with the histologic findings, further tissue sampling is recommended as clinically indicated. 2023 3:56 PM T [facility] Clinical Information Upper abdominal pain with nausea and vomiting. Pelvic imaging showed multicystic cervical lesion. Pelvic MRI shows a 3.3 x 2.6 x 2.5 cm cluster of cysts in the cervix with enhancement of the septations, differential diagnosis neoplasm versus clusters of nabothian cysts. 2023 3:56 PM T [facility] Gross Description A) Received in formalin, labeled with the patient's name and ECC, is a 1.1 x 0.4 x 0.1 cm aggregate of blood tinged mucous. The specimen is entirely submitted in 1 cassette. EKW 10/04/2023 2023 3:56 PM T [facility] Microscopic Description The final diagnosis is based on microscopic examination of appropriate sections of all specimens. Additional deeper levels examined. 2023 3:56 PM CDT [facility] Additional Information Interpreted at [facility] - [address], [place] [address] 2023 3:56 PM CDT [facility] Other (Endocervical Curettings) 10/03/2023 8:50 AM CDT 10/04/2023 4:15 PM CDT Nabila Alcaraz MD PATHOLOGY/ CYTOLOGY Performing Organization Address [facility] Co de Phone Number [facility] [address] [place] [address], * HPV HIGH RISK (10/03/2023 8:50 AM CDT) TYPE 16 Negative Negative 10/08/2023 1:56 PM CDT [facility] TYPE 18 Negative Negative 10/08/2023 1:56 PM CDT [facility] OTHER HIGH RISK TYPES Negative Negative 10/08/2023 1:56 PM CDT [facility] Other (Cervical) 10/03/2023 8:50 AM CDT 10/04/2023 5:01 PM CDT Narrative [facility] - 10/08/2023 1:56 PM CDT HPV types 16, 18, 31, 33, 35, 39, 45, 51, 52, 56, 58, 59, 66 and 68 DNA were undetectable or below the pre-set threshold. Methodology: Sindy Hood 4800 HPV Test Nabila Alcaraz MD MICROBIOLO GY Performing Organization Address [facility]/ZIP Co de Phone Number [facility] [address] [place] [address], [place] * MR PELVIS WWO (09/28/2023 8:00 AM CDT) Anatomical Region Laterality Modality Pelvis Magnetic Resonan ce 09/28/2023 9:46 AM CDT Impressions 09/28/2023 9:46 AM CDT 1. Cluster of cysts in the cervix could represent adenocarcinoma of the cervix or conglomerate nabothian cysts. Recommend tissue diagnosis. Dictated by Hasmukh Urrutia MD @ 09/28/2023 9:46:37 AM (Electronically Signed) Narrative 09/28/2023 9:46 AM CDT For Patients: ??As a result of the Cures Act, medical imaging exams and procedure reports are released immediately into your electronic medical record. ??You may view this report before your referring provider. ??If you have questions, please contact your health care provider. INDICATION: Cervical mass. COMPARISON: Pelvic ultrasound dated 25 September 2023. TECHNIQUE: Pelvic MRI with T1, T2, and postcontrast images. Intravenous gadolinium administered. FINDINGS: Normal appearance of the uterus. Normal thickness of the endometrial stripe. 3.3 x 2.6 x 2.5 cm cluster of cysts in the cervix with enhancement of the septations. No other cervical mass identified. The ovaries are not well visualized. No other pelvic masses. No adenopathy. No other bony or soft tissue abnormalities identified. Procedure Note Hasmukh Urrutia MD - 09/28/2023 For Patients: As a result of the Cures Act, medical imagingexams and procedure reports are released immediately into your electronicmedical record. You may view this report before your referring provider.If you have questions, please contact your health care provider. INDICATION: Cervical mass. COMPARISON: Pelvic ultrasound dated 25 September 2023. TECHNIQUE: Pelvic MRI with T1, T2, and postcontrast images. Intravenous gadoliniumadministered. FINDINGS: Normal appearance of the uterus. Normal thickness of the endometrialstripe. 3.3 x 2.6 x 2.5 cm cluster of cysts in the cervix with enhancement of theseptations. No other cervical mass identified. The ovaries are not well visualized. No other pelvic masses. No adenopathy. No other bony or soft tissue abnormalities identified. IMPRESSION: 1. Cluster of cysts in the cervix could represent adenocarcinoma of thecervix or conglomerate nabothian cysts. Recommend tissue diagnosis. Dictated by Hasmukh Urrutia MD @ 09/28/2023 9:46:37 AM (Electronically Signed) Nohemy Lomax DO MR * US PELVIS COMPLETE TA AND TV (09/25/2023 1:34 PM CDT) Anatomical Region Laterality Modality Pelvis Ultrasound 09/26/2023 8:30 AM CDT Impressions 09/26/2023 8:30 AM CDT Hypervascular areas service with multiple cysts that correspond to the structure seen on the previous CT scan. A malignancy/mass can not be excluded. Recommend pelvic MRI. Dictated by Jayme Santos MD @ 09/26/2023 8:30:04 AM (Electronically Signed) Narrative 09/26/2023 8:30 AM CDT For Patients: ??As a result of the Cures Act, medical imaging exams and procedure reports are released immediately into your electronic medical record. ??You may view this report before your referring provider. ??If you have questions, please contact your health care provider. INDICATION: Possible cervical mass seen on CT scan of 08/24/2023 TECHNIQUE: Transabdominal and transvaginal pelvic ultrasound was performed. Transvaginal images performed to better evaluate endometrial stripe and adnexa. COMPARISON: CT abdomen pelvis done 08/24/2023. Findings: The uterus measures 6.4 x 2.3 x 3.3 cm. The endometrial thickness measures 0.2 cm. There is a hypervascular area in the cervix with multiple cysts which also seen on the previous CT scan. The ovaries are not visualized. There is no adnexal mass. There is no free fluid the pelvis. Procedure Note Jayme Santos MD - 09/26/2023 For Patients: As a result of the Cures Act, medical imagingexams and procedure reports are released immediately into your electronicmedical record. You may view this report before your referring provider.If you have questions, please contact your health care provider. INDICATION: Possible cervical mass seen on CT scan of 08/24/2023 TECHNIQUE: Transabdominal and transvaginal pelvic ultrasound was performed.Transvaginal images performed to better evaluate endometrial stripe andadnexa. COMPARISON: CT abdomen pelvis done 08/24/2023. Findings: The uterus measures 6.4 x 2.3 x 3.3 cm. The endometrial thickness measures0.2 cm. There is a hypervascular area in the cervix with multiple cystswhich also seen on the previous CT scan. The ovaries are not visualized. There is no adnexal mass. There is no free fluid the pelvis. IMPRESSION: Hypervascular areas service with multiple cysts that correspond to thestructure seen on the previous CT scan. A malignancy/mass can not beexcluded. Recommend pelvic MRI. Dictated by Jayme Santos MD @ 09/26/2023 8:30:04 AM (Electronically Signed) Ami MOJICA US * CT ABDOMEN PELVIS W (08/24/2023 2:55 PM REWINDER OPERATOR HELPER) Anatomical Region Laterality Modality Abdomen, Pelvis, AORTA, LIVER, SPLEEN Computed Tomography Impressions 08/24/2023 3:42 PM REWINDER OPERATOR HELPER 1. ??No CT evidence of an acute process involving the abdomen or pelvis. 2. ??There are multiple well-circumscribed low-density cystic like lesions seen throughout the cervix, incompletely characterized on this exam; favored to represent multiple nabothian cyst versus malignancy. ??Recommend nonemergent, outpatient consultation with gynecology for further management recommendations. Narrative 08/24/2023 3:42 PM REWINDER OPERATOR HELPER INDICATION: PT WITH UPPER ABD PAIN, NAUSEA AND VOMMITING; PT HX OF BREAST CANCER TECHNIQUE: CT abdomen/pelvis with IV contrast, 100 mL Visipaque 320 COMPARISON: None FINDINGS: Lower thorax: Unremarkable Abdomen/pelvis: Status post cholecystectomy. ??No suspicious hepatic lesions. 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 Spleen, pancreas, and bilateral adrenal glands are unremarkable in appearance. The kidneys perfuse in normal fashion. ??No suspicious enhancing renal masses or lesions. ??Multiple well-circumscribed low-density lesions bilaterally, likely benign cyst. ??No renal calculi or hydroureteronephrosis. ??The bladder is unremarkable in appearance. The uterus is within normal limits. ??There is no endometrial thickening. ?? There are multiple well-circumscribed low-density cystic lesions seen throughout the cervix No evidence of bowel obstruction or inflammation. ??Postsurgical changes of sleeve gastrectomy. ??The appendix is not discretely visualized; however, there are no inflammatory changes in the right lower quadrant to suggest acute appendicitis. No free fluid or free air. ??No pathologically enlarged lymph nodes throughout the abdomen or pelvis. ??No abdominal aortic aneurysm. ?? Mild calcific atherosclerosis of the aortoiliac system and its branches. No acute fracture or malalignment. ??No suspicious osseous lesions. ??Mild osteopenia. Ami MOJICA CT * (ABNORMAL) CREATININE,ISTAT (08/24/2023 2:26 PM REWINDER OPERATOR HELPER) [facility] CREATININE, POCT 1.10 0.57 - 1.11 mg/dL 08/24/2023 2:28 PM REWINDER OPERATOR HELPER [facility] Comment:Caution: Patients ta kenton Hydroxyurea have falsely increased iStat Creatinine results. Verify creatinine results ordering a Creatinine (41858.2) eGFR 53(L) >90 mL/min/1.7 3m2 08/24/2023 2:28 PM REWINDER OPERATOR HELPER [facility] Comment:As of 2021, eG FR is calculated by the CKD-EPI creatinine equation without race adjustment. eGFR can be influenced by muscle mass, exercise, and diet. The reported eGFR is an estimation only and is only applicable if the renal function is stable. Blood BLOOD SPECIMEN / Unknown 08/24/2023 2:26 PM REWINDER OPERATOR HELPER 08/24/2023 2:28 PM REWINDER OPERATOR HELPER Ami MOJICA CHEMISTRY [facility] [address] [place] [address], * (ABNORMAL) CBC WITH AUTO DIFFERENTIAL (08/24/2023 2:01 PM REWINDER OPERATOR HELPER) [facility] WHITE BLOOD COUNT 4.6 4.5 - 11.0 thou/cu mm 08/24/2023 2:18 PM REWINDER OPERATOR HELPER [facility] RED BLOOD COUNT 3.88(L) 4.00 - 5.20 mil/cu mm 08/24/2023 2:18 PM [facility] HEMOGLOBIN 12.2 12.0 - 16.0 g/dL 08/24/2023 2:18 PM [facility] HEMATOCRIT 37.4 33.0 - 51.0 % 08/24/2023 2:18 PM [facility] MCV 96 80 - 100 fL 08/24/2023 2:18 PM [facility] MCH 31.4 26.0 - 34.0 pg 08/24/2023 2:18 PM [facility] MCHC 32.6 32.0 - 36.0 g/dL 08/24/2023 2:18 PM [facility] RDW 12.7 11.5 - 15.5 % 08/24/2023 2:18 PM [facility] PLATELET COUNT 159 140 - 440 thou/cu mm 08/24/2023 2:18 PM [facility] MPV 12.2(H) 6.5 - 11.0 fL 08/24/2023 2:18 PM [facility] % NEUT 58.8 % 08/24/2023 2:18 PM [facility] % LYMPH 22.1 % 08/24/2023 2:18 PM [facility] % MONO 16.1 % 08/24/2023 2:18 PM [facility] % EOS 2.8 % 08/24/2023 2:18 PM [facility] % BASO 0.2 % 08/24/2023 2:18 PM [facility] ABSOLUTE NEUTROPHILS 2.7 1.7 - 7.0 thou/cu mm 08/24/2023 2:18 PM [facility] ABSOLUTE LYMPHOCYTES 1.0 0.9 - 2.9 thou/cu mm 08/24/2023 2:18 PM [facility] ABSOLUTE MONOCYTES 0.7 <0.9 thou/cu mm 08/24/2023 2:18 PM [facility] ABSOLUTE EOSINOPHILS 0.1 <0.5 thou/cu mm 08/24/2023 2:18 PM [facility] ABSOLUTE BASOPHILS 0.0 <0.3 thou/cu mm 08/24/2023 2:18 PM REWINDER OPERATOR HELPER [facility] Blood BLOOD SPECIMEN / Unknown Venipuncture / Unknown 08/24/2023 2:01 PM REWINDER OPERATOR HELPER 08/24/2023 2:03 PM REWINDER OPERATOR HELPER Ami MOJICA HEMATOLOGY [facility] [address] [place] [address], * C-REACTIVE PROTEIN (08/24/2023 2:01 PM REWINDER OPERATOR HELPER) C-REACTIVE PROTEIN <0.3 <0.5 mg/dL 08/24/2023 9:23 PM REWINDER OPERATOR HELPER [facility] Blood BLOOD SPECIMEN / Unknown Venipuncture / Unknown 08/24/2023 2:01 PM REWINDER OPERATOR HELPER 08/24/2023 2:03 PM REWINDER OPERATOR HELPER Ami MOJICA CHEMISTRY [facility] [address] [place] [address], [place] * LIPASE (08/24/2023 2:01 PM REWINDER OPERATOR HELPER) Pathologist [facility] LIPASE 59.1 13.0 - 60.0 IU/L 08/24/2023 9:48 PM REWINDER OPERATOR HELPER [facility] Blood BLOOD SPECIMEN / Unknown Venipuncture / Unknown 08/24/2023 2:01 PM REWINDER OPERATOR HELPER 08/24/2023 2:03 PM REWINDER OPERATOR HELPER Ami MOJICA CHEMISTRY [facility] [address] [place] [address], * (ABNORMAL) COMP METABOLIC PANEL (08/24/2023 2:01 PM REWINDER OPERATOR HELPER) SODIUM 137 136 - 145 mmol/L 08/24/2023 9:22 PM REWINDER OPERATOR HELPER [facility] POTASSIUM 4.2 3.5 - 5.1 mmol/L 08/24/2023 9:22 PM [facility] CHLORIDE 102 98 - 107 mmol/L 08/24/2023 9:22 PM [facility] CO2,TOTAL 24 22 - 29 mmol/L 08/24/2023 9:22 PM [facility] ANION GAP 11 5 - 18 08/24/2023 9:22 PM [facility] GLUCOSE 96 70 - 99 mg/dL 08/24/2023 9:22 PM [facility] CALCIUM 9.2 8.8 - 10.2 mg/dL 08/24/2023 9:22 PM [facility] BUN 16 8 - 23 mg/dL 08/24/2023 9:22 PM [facility] CREATININE 1.13(H) 0.50 - 0.90 mg/dL 08/24/2023 9:22 PM [facility] BUN/CREAT RATIO 14 10 - 20 9:22 PM [facility] eGFR 52(L) >90 mL/min/1.7 3m2 08/24/2023 9:22 PM [facility] Comment:As of 2021, eG FR is calculated by the CKD-EPI creatinine equation without race adjustment. ??eGFR can be influenced by muscle mass, exercise, and diet. ??The reported eGFR is an estimation only and is only applicable if the renal function is stable. ALBUMIN 4.2 4.0 - 4.9 g/dL 08/24/2023 9:22 PM [facility] PROTEIN,TOTAL 6.5 6.0 - 8.0 g/dL 08/24/2023 9:22 PM [facility] BILIRUBIN,TOTAL 0.3 0.0 - 1.2 mg/dL 08/24/2023 9:22 PM [facility] ALK PHOSPHATASE 81 35 - 104 IU/L 08/24/2023 9:22 PM [facility] ALT (SGPT) 20 10 - 35 IU/L 08/24/2023 9:22 PM REWINDER OPERATOR HELPER [facility] AST (SGOT) 33 10 - 35 IU/L 08/24/2023 9:22 PM REWINDER OPERATOR HELPER [facility] Blood BLOOD SPECIMEN / Unknown Venipuncture / Unknown 08/24/2023 2:01 PM REWINDER OPERATOR HELPER 08/24/2023 2:03 PM REWINDER OPERATOR HELPER Ami MOJICA CHEMISTRY [facility] [address] [place] [address], [place] * SCAN-MAMMOGRAPHY REPORT (04/30/2023 12:00 AM CDT) Anatomical Region Laterality Modality Other Scanner OTHER * LC HCV ANTIBODY RFX TO QUANT PCR (01/23/2023 12:00 PM CDT) HCV Ab Non Reactive Non Reactive 01/25/2023 1:09 PM [facility]T [facility] Blood BLOOD SPECIMEN / Unknown Venipuncture / Unknown 01/23/2023 12:00 PM CDT 01/23/2023 12:[address] [facility] - 01/25/2023 1:09 PM CDT Performed at: ??[address] ??[id number] Social And Political Studies Professor: Donato Rendon MD, Phone: ??[phone] Key Perez DO LABORATORY [facility] ([facility] [address] [place] [id number], * (ABNORMAL) XR DXA BONE DENSITY 2 SITES AXIAL (10/30/2022 12:00 PM CDT) Anatomical Region Laterality Modality Spine, HIPS, HIPL, HIPR Other Impressions 11/01/2022 1:02 PM CDT Osteoporosis. RECOMMENDATIONS: The National Osteoporosis Foundation recommends pharmacologic treatment for patients with T-scores of -2.5 or less, patients with prior history of fragility fractures, or patients with 10-year probability of greater than 3% at hips or greater than 20% of suffering major osteoporotic fractures. Recommend continued optimization of calcium and vitamin D intake through dietary means and/or supplementation and regular exercise. Consider pharmacologic therapy for osteoporosis. Follow-up bone density reading in 2 years if therapy initiated to assess therapeutic efficacy. Randi Martinez PA-C [facility] 11/01/2022 Narrative 11/01/2022 1:02 PM CDT For Patients: Results are automatically released to your [facility] ([employer]) account once available, in compliance with federal regulations. This means that you may see your results before your provider has had a chance to review them. Please allow 2-3 business days for your provider to comment on the results. XR DXA Bone Mineral Density (BMD) EXAM LOCATION: [address] [address] PATIENT NAME: Dhaval Torres DATE OF : 1950 EXAM DATE: 10/30/2022 REQUESTING PROVIDER: Key Perez, DO GENDER AT : female HEIGHT: 5' 2.6 (04/11/2022) WEIGHT: ??162 lb (10/26/2022) MENOPAUSAL STATUS: Postmenopausal RACE/ETHNICITY: White RISK FACTORS: Aromatase Inhibitors (Arimidex, etc.), Family History of Osteoporosis, Family History of Hip Fracture (parental) and White Race CURRENT MEDICATION FOR BONE LOSS: NONE INDICATION: Screening for osteoporosis COMPARISON DATE(S): None DXA scans are compared to prior studies for a patient only when the two (or more) studies were performed on the same scanner. It is not possible to compare data generated on one scanner to data from another because there are not standards in DXA equipment. This applies even if the two scanners are made by the same consulting analyst. PROCEDURE: Dual-energy x-ray absorptiometry performed with routine technique. Reporting is completed in the form of a T-score. The T-score represents the standard deviation from peak bone mass based on young healthy adult. A Z-score is used for diagnosis in premenopausal women, and for men under the age of 50. FINDINGS: RESULT LUMBAR SPINE L1 - L4 BMD: 0.792 g/cm2 T-Score: - 3.3 Z-Score: - 1.8 Change from prior: ??None RESULTS FEMUR Left femoral neck BMD: 0.641 g/cm2 T-Score: - 2.9 Z-Score: - 1.3 Change from prior: ??None Right femoral neck BMD: 0.667 g/cm2 T-Score: - 2.7 Z-Score: - 1.1 Change from prior: ??None Left hip BMD: 0.687 g/cm2 T-Score: - 2.5 Z-Score: - 1.2 Change from prior: ??None Right hip BMD: 0.675 g/cm2 T-Score: - 2.6 Z-Score: - 1.3 Change from prior: ??None WHO criteria: Normal: T-score at or above -1 SD Osteopenia: T-score between -1.1 and -2.4 SD Osteoporosis: T-score at or below -2.5 SD Key Perez DO DEXA * SCAN-COLONOSCOPY (03/24/2021 12:00 AM CDT) Scanner OTHER from Last 3 Months or Most Recently Relevant to Health Maintenance Care Teams Cutter Grind Tool Technician Relationship Specialty Start Date End Date Key Perez [facility] [id number] PCP - General Family Practice 04/10/22
--- NOTE | 2023-11-21 09:45 | MM_ITS ---
Patient: KIMBERLY ANGULO Facility:?[facility] Patient ID:?[id number] Site Patient ID:?[id number] Site :?1950 Study:?XRay-Breast Right 3D W/CAD-11/21/2023 10:23:53 AM Ordering Physician:Payton Leyva Final Report: DIGITAL DIAGNOSTIC RIGHT MAMMOGRAM USING TOMOSYNTHESIS AND COMPUTER-AIDED DETECTION RIGHT BREAST ULTRASOUND CLINICAL HISTORY: RIGHT breast pain. COMPARISON: 04/17/2023. TECHNIQUE: Digital RIGHT mammogram in two projections with computer-aided detection. Tomosynthesis was used in this interpretation. Real-time ultrasound imaging of RIGHT breast with imaging documentation. BREAST COMPOSITION: The breast is heterogeneously dense, which may obscure small masses. FINDINGS: 3D CC/MLO RIGHT breast mammogram images submitted. Benign vascular calcifications are present. No suspicious masses or architectural distortion. No adenopathy. Targeted RIGHT breast ultrasound performed in the area of concern performed at 2 o`clock 5 cm from the nipple. Normal breast tissue is present. No fluid collection or mass. IMPRESSION: No suspicious findings. No evidence of malignancy. RECOMMENDATIONS: Routine screening mammography and clinical follow-up. BI-RADS Category 2: Benign A lay language report of this examination will be provided to the patient. Dictated by Oziel Coe MD @ 11/21/2023 10:41:25 AM jj/Dictated by: Oziel Coe MD @ 11/21/2023 10:41:00 AM Signed by:?Oziel Coe MD @11/21/2023 12:02:22 PM (Electronic Signature)
--- NOTE | 2023-11-21 10:15 | US_ITS ---
Patient: KIMBERLY ANGULO Facility:?[facility] Patient ID:?[id number] Site Patient ID:?[id number] Site :?1950 Study:?US-Breast Right DSM to read-11/21/2023 10:32:01 AM Ordering Physician:?Payton Mejia Final Report: PLEASE SEE DIGITAL DIAGNOSTIC RIGHT MAMMOGRAM PERFORMED SAME DAY CRL:kaylen abdullahi/Dictated by: Oziel Coe MD @ 11/21/2023 10:41:00 AM Signed by:?Oziel Coe MD @11/21/2023 12:02:23 PM (Electronic Signature)
== END 2023-11-21 09:35 | disposition home or self-care (01) ==
LOC: MAMMO 09:34
PROVIDERS: PCP Family Medicine; Visit Provider Physician Assistant
DX: N64.4 Mastodynia; N63.10 Unspecified lump in the right breast, unspecified quadrant; R92.2 Inconclusive mammogram
CPT/HCPCS: 76642; 77065; G0279

== ENCOUNTER 2023-12-03 09:16 | Outpatient (CLI) | payer OTHER, SELFPAY ==
--- OUTSIDE RECORDS SUMMARY | 2023-12-03 09:20 | XMS_ITS | Clinical Summary ---
Author Organization [facility] Address [place], [place] [address] Care Team Providers Care Pot Builder Name Role Phone Key Perez DO Primary Care Provider [phone] Allergies Active Allergy Reactions Criticality Noted Date Comments Codeine Headache 04/19/2021 Grass Pollen Rash 04/19/2021 Medications Medication Sig Dispensed Refills Start Date End Date Status tamoxifen (NOLVADEX) 20 mg tablet Take 20 mg by mouth once daily. 12/30/2021 Active Lacto.acidophilu s-Bif.animalis 31 billion cell cap Daily Active cholecalciferol (VITAMIN D3) 50,000 unit capsule Take 1 Capsule (50,000 units) by mouth once daily. 0 01/18/2022 Active potassium chloride (K-TAB) 10 mEq extended-release tabletIndication s:Hypokalemia Take 1 Tablet (10 mEq) by mouth once daily with a meal. 180 Tablet 3 12/14/2022 Active calcium citrate/vitamin D3 (CITRUS CALCIUM 1500 + D ORAL) Take by mouth. Active acetaminophen (TYLENOL EXTRA STRGTH) 500 mg tablet Take 1 Tablet (500 mg) by mouth two times daily. Max acetaminophen dose: 4000mg in 24 hrs. 0 01/23/2023 Active venlafaxine (EFFEXOR) 100 mg tabletIndication s:Depression, recurrent (HC) TAKE 1 TABLET(100 MG) BY MOUTH IN THE MORNING AND IN THE EVENING 180 Tablet 3 04/19/2023 Active levothyroxine (SYNTHROID) 88 mcg tabletIndication s:Hypothyroidism (acquired) Take 1 Tablet (88 mcg) by mouth before breakfast. 90 Tablet 3 06/05/2023 Active cephalexin (KEFLEX) 500 mg capsuleIndicatio ns:Abscess Take 1 Capsule (500 mg) by mouth two times daily for 10 days. 20 Capsule 11/29/2023 Active Benazepril HCl 40 mg tabletIndication s:HTN (hypertension) Take 1 Tablet (40 mg) by mouth once daily. 90 Tablet 2 11/29/2023 Active Benazepril HCl 40 mg tabletIndication s:HTN (hypertension) Take 1 Tablet (40 mg) by mouth once daily. 90 Tablet 2 03/16/2023 Discontinue d(Reorder (E-cancel not sent)) Active Problems Problem Noted Date Diagnosed Date Mild dementia without behavi oral disturbance, psychotic disturbance, mood disturbance, or anxiety, unspecified dementia type 07/25/2023 Mild neurocognitive disorder 08/17/2022 Depression, recurrent 01/20/2022 Hypokalemia 01/20/2022 HTN (hypertension) 01/20/2022 Hypothyroidism (acquired) 01/20/2022 History of gastric bypass 01/20/2022 Osteoporosis 01/20/2022 History of anemia 01/20/2022 History of breast cancer 01/20/2022 Encounters Date Type Department Care Team Description 11/29/2023 3:10 PM CDT Preop Visit [facility] [address] [place] [address] Key Perez DO Preoperative Exam (12/03/23 EGD [facility]); Immunization/Injecti on (COVID-19 vaccine) 11/29/2023 Travel 11/21/2023 Orders Only [facility] Scanner 1 scan: (1-Ord) [facility], DIAGNOSTIC MAMMO UNILAT RT, 11/21/2023 11/21/2023 Orders Only [facility] Scanner 1 scan: (1-Ord) [facility], BREAST RT LMTD, 11/21/2023 10/04/2023 Lab Requisition [facility] [phone] Nabila Alcaraz MD 10/04/2023 Lab Requisition [facility] [phone] Nabila Alcaraz MD 09/28/2023 7:01 AM CDT - 09/28/2023 11:59 PM CDT Hospital Encounter [facility] [address] [place] [address] Nohemy Lomax Karolyn, DO Mass of cervix 09/28/2023 Travel 09/26/2023 Telephone [facility] [address] [place] [address] Nohemy Lomax Karolyn, DO Results (Pelvic US/) 09/25/2023 1:00 PM CDT Ancillary Procedure [facility] [address] [place] [address] 09/25/2023 Travel 09/03/2023 10:30 AM PODODERMATOLOGIST Nurse/Clinic Staff Only [facility] [address] [place] [address] Immunization/Injecti on (PROLIA INJECTION ) 09/03/2023 Travel from Last 3 Months Immunizations Name Administration Dates Next Due COVID-19 Vaccine Spikevax (M oderna 50mcg/0.5mL) 12YO+ [id number] Formula PF 11/29/2023,07/25/2023 COVID-19 vaccine (Moderna 100mcg/0.5mL) PF, MDV 09/26/2020,08/29/2020 COVID-19 vaccine (OG-Vegas-BioNTech 30mcg/0.3mL) P F, MDV 06/22/2021 Influenza, High-dose [...] Sign Reading Time Taken Comments Blood Pressure 110/72 11/29/2023 3:15 PM CDT Pulse 75 11/29/2023 3:15 PM CDT Temperature 37.3 ??C (99.1 ??F) 03/28/2023 4:27 PM CD T Respiratory Rate 18 03/28/2023 4:27 PM CDT Oxygen Saturation 100% 11/29/2023 3:15 PM CDT Inhaled Oxygen Concentration - - Weight 61.7 kg (136 lb) 11/29/2023 3:15 PM CDT Height 158.8 cm (5' 2.5) 11/29/2023 3:15 PM CDT Body Mass Index 24.48 11/29/2023 3:15 PM CDT Plan of Treatment Upcoming Encounters Date Type Department Care Team (Late st Contact Info) Description 12/27/2023 3:10 PM CDT Office Visit [facility] [address] [place] [address] Key Perez, [address] [facility] [place] [address] Health Maintenance Due Date Last Done Comments Tdap 1961 Lipids for age 45-75 10/06/1995 COVID-19 vaccine series ( season) 2024 11/29/2023, 07/25/2023, 05/22/2022, Additional history exists Influenza for age 65+ 03/02/2024 03/14/2023 , 03/08/2022, 04/19/2021 Colonoscopy through age 75 03/24/202403/24, 03/24/2021 ([facility] Medicare Wellness for age 65+ 04/16/2024 04/16/2023, 04/11/2022 Depression screening for age 12+ 04/18/2024 04/18/2023, 04/18/2023, 04/16/2023, Additional history exists Mammogram for age 45-75 11/20/2024 11/21/19 24, 04/30/2023, 04/17/2023, Additional history exists BMI (ht and wt on same day) for age 18+ 11/28/2024 11/29/2023, 04/16/2023, 04/11/2022, Additional history exists Tetanus booster 03/16/2030 03/16/2020 Pneumococcal series for age 65+ Completed DEXA/DXA scan for age 65+ Completed 10/30/2022 Hepatitis C screening for ag e 18-79 Completed 01/23/2023 Zoster (shingles) series for age 50+ Completed 05/19/2023, 12/12/2022 Procedures Procedure Name Priority Date/Time Associated Diagnosis Comments ESOPHAGOGASTRODUODENOSCOPY Routine 12/02 8:03 AM CDT Upper abdominal pain Nausea and vomiting, unspecified vomiting type History of bariatric surgery Weight loss POTASSIUM Routine 11/29/2023 4:16 PM CDT Pre-op exam SCAN-MAMMOGRAPHY REPORT 11/21/19 12:00 AM CDT SCAN-ULTRASOUND REPORT 12:00 AM CDT LAB TRACKING EVENT Routine 10/03/2023 8:50 AM CDT LAB TRACKING EVENT Routine 10/03/2023 8:50 AM CDT PATH TISSUE EXAM Routine 10/03/2023 8:50 AM CDT AUTOMATION MANAGER THIN PREP PAP SCREEN IMAGED Routine 10/03/2023 8:50 AM CDT HPV THIN PREP Routine 10/03/2023 8:50 AM CDT MR PELVIS WWO AIYANA 09/28/2023 8:00 AM CDT Mass of cervix US PELVIS COMPLETE TA AND TV Routine 1:34 PM CDT Mass of uterus LC HCV ANTIBODY RFX TO QUANT PCR Routine 01/23/2023 12:00 PM CDT Need for hepatitis C screening test XR DXA BONE DENSITY 2 SITES AXIAL Routine 10/30/2022 12:00 PM CDT Osteoporosis, unspecified osteoporosis type, unspecified pathological fracture presence SCAN-COLONOSCOPY 03/24/2021 12:00 AM CDT from Last 3 Months or Most Recently Relevant to Health Maintenance Results * POTASSIUM (11/29/2023 4:16 PM CDT) POTASSIUM 4.2 3.5 - 5.1 mmol/L 11/30/2023 2:25 PM CDT [facility] Blood BLOOD SPECIMEN / Unknown Venipuncture / Unknown 11/29/2023 4:16 PM CDT 11/29/2023 4:17 PM CDT Key Perez DO CHEMISTRY [facility] [address] [place] [address], * SCAN-MAMMOGRAPHY REPORT (11/21/2023 12:00 AM CDT) Anatomical Region Laterality Modality Other Scanner OTHER * SCAN-ULTRASOUND REPORT (11/21/2023 12:00 AM CDT) Anatomical Region Laterality Modality Other Scanner OTHER * LAB TRACKING EVENT (10/03/2023 8:50 AM CDT) Only the most recent of2 resultswithin the time period is included. Other (Other) Client Collect / Unknown 10/03/2023 8:50 AM CDT 10/04/2023 3:16 PM CDT Nabila Alcaraz MD LAB BILL O [facility] [address] [place] [address], * AUTOMATION MANAGER THIN PREP PAP SCREEN IMAGED (10/03/2023 8:50 AM CDT) Case Report Gynecologic Cytology Report ? Case: [id number] ? Authorizing Provider: ??Nabila Alcaraz ?Collected: ? 10/03/2023 0850 ? MD Esther ? Ordering Location: ? [facility] ?Received: ?10/04/2023 1701 ? First Screen: ?Baccam, Minie ? Rescreen: ?Jacki Strauss ? Specimen: ?AUTOMATION MANAGER ThinPrep Vial Screening, Cervical ? 10/19/2023 11:33 AM CDT [facility] INTERPRETATION/ RESULT NEGATIVE FOR INTRAEPITHELIAL LESION OR MALIGNANCY (NIL) (none) 10/19/2023 11:33 AM T [facility] IMEN ADEQUACY Satisfactory for evaluation No endocervical component seen Scant cellularity 10/19/2023 11:33 AM CDT [facility] EN[facility] LAB[facility]ATORY HPV REQUEST HPV and PAP 10/19/2023 11:33 AM CDT [facility]- EN[facility] LAB[facility]ATORY Abnormal Pap or [place] Bx in last 5 years No 10/19/2023 11:33 AM CDT [facility] Menstrual Status Postmenopausal 10/19/2023 11:33 AM CDT [facility] [place] Bx Done Today No 10/19/2023 11:33 AM CDT [facility] Additional Information 10/19/2023 11:33 AM CDT [facility] Comment: Interpreted at [facility] - [address], [place] [address] Automated Review Successful 10/19/2023 11:[address] [facility] Comment:Specimen processed s uccessfully by automated electron beam welding machine operator device, [employer] Frameworks[employer] Imaging System, [employer] ANCILLARY TESTING AUTOMATION MANAGER HPV Ordered, Please see separate report 10/19/2023 11:33 AM CDT [facility] Note The pap test is a screening technique, not a diagnostic procedure. It is used primarily to screen for squamous cancers and precursor lesions. Published studies have shown that it is subject to both false negative and false positive results. The pap test should not be used as the sole means to diagnose or exclude pre-malignant and malignant lesions. 10/19/2023 11:33 AM CDT [facility] Other (Cervical) 10/03/2023 8:50 AM CDT 10/04/2023 5:01 PM CDT Nabila Alcaraz MD PATHOLOGY/ CYTOLOGY [facility] [address] [place] [address], * PATH TISSUE EXAM (10/03/2023 8:50 AM CDT) Case Report Pathology Report ?Case: [id number] ? Authorizing Provider: ??Nabila Alcaraz ?Collected: ? 10/03/2023 0850 ? MD Esther ? Ordering Location: ? [facility] ?Received: ?10/04/2023 1615 ? Pathologist: ? Christina Carrizales MD ? Specimen: ?Endocervical Curettings, ECC ? 2023 3:56 PM CDT [facility] Final Diagnosis A) ENDOCERVIX, CURETTAGE: 1. Very scant fragments of benign endocervical and ectocervical epithelium with reactive/metaplast ic changes; See comment 2. Negative for glandular neoplasia, squamous intraepithelial lesion, and malignancy 2023 3:56 PM CDT [facility] Comment The clinical/imaging impression of a 3.3 cm cervical mass is noted. The specimen is scant and definitive features of atypia/neoplasia are not seen. If the clinical impression does not correlate with the histologic findings, further tissue sampling is recommended as clinically indicated. 2023 3:56 PM CDT [facility] Clinical Information Upper abdominal pain with nausea and vomiting. Pelvic imaging showed multicystic cervical lesion. Pelvic MRI shows a 3.3 x 2.6 x 2.5 cm cluster of cysts in the cervix with enhancement of the septations, differential diagnosis neoplasm versus clusters of nabothian cysts. 2023 3:[address] [facility] Gross Description A) Received in formalin, labeled with the patient's name and ECC, is a 1.1 x 0.4 x 0.1 cm aggregate of blood tinged mucous. The specimen is entirely submitted in 1 cassette. EKW 10/04/2023 2023 3:[address] [facility] Microscopic Description The final diagnosis is based on microscopic examination of appropriate sections of all specimens. Additional deeper levels examined. 2023 3:[address] [facility] Additional Information Interpreted at [facility] - [address] [facility] [address], [place] [address] 2023 3:56 PM CDT [facility] Other (Endocervical Curettings) 10/03/2023 8:50 AM CDT 10/04/2023 4:15 PM CDT Nabila Alcaraz MD PATHOLOGY/ CYTOLOGY [facility] [address] [place] [address], * HPV HIGH RISK (10/03/2023 8:50 AM CDT) TYPE 16 Negative Negative 10/08/2023 1:56 PM CDT [facility] TYPE 18 Negative Negative 10/08/2023 1:56 PM CDT [facility] OTHER HIGH RISK TYPES Negative Negative 10/08/2023 1:56 PM CDT [facility] Other (Cervical) 10/03/2023 8:50 AM CDT 10/04/2023 5:01 PM CDT Narrative [facility] - 10/08/2023 1:56 PM CDT HPV types 16, 18, 31, 33, 35, 39, 45, 51, 52, 56, 58, 59, 66 and 68 DNA were undetectable or below the pre-set threshold. Methodology: Sindy Hood 4800 HPV Test Nabila Alcaraz MD MICROBIOLO GY [facility] [address] [place] [address], [place] * MR PELVIS WWO (09/28/2023 8:00 [...] no free fluid the pelvis. Procedure Note Jyame Santos MD - 09/26/2023 For Patients: As a result of the 21st Century Cures Act, medical imagingexams and procedure reports [...] AM (Electronically Signed) Ami [facility]JICA US * LC HCV ANTIBODY RFX TO QUANT PCR (01/23/2023 12:00 PM CDT) HCV Ab Non Reactive Non Reactive 01/25/2023 1:09 PM CDT [facility] Blood BLOOD SPECIMEN / Unknown Venipuncture / Unknown 01/23/2023 12:00 PM CDT 01/23/2023 12:02 PM CDT Narrative [facility] ([facility]) - 01/25/2023 1:09 PM CDT Performed at: ??01 - [facility] [address], [place] [id number] Seat Scooper Machine: Donato Rendon MD, Phone: ??[phone] Key Perez DO LABORATORY [facility] ([facility]) [facility] [place] [address], * (ABNORMAL) XR DXA BONE DENSITY 2 [...] to assess therapeutic efficacy. Randi Martinez PA-C [facility] 11/01/2022 Narrative 11/01/2022 1:02 PM CDT For Patients: Results are automatically released to your [facility] ([facility]) account once available, in compliance with federal regulations. This means that you may see your results before your provider has had a chance to review them. Please allow 2-3 business days for your provider to comment on the results. XR DXA Bone Mineral Density (BMD) EXAM LOCATION: [address] [address] PATIENT NAME: Dhaval Torres DATE OF : 1950 EXAM DATE: 10/30/2022 REQUESTING PROVIDER: Key Perez, GENDER AT : female HEIGHT: 5' 2.6 [...] two scanners are made by the same computer repair instructor. PROCEDURE: Dual-energy x-ray absorptiometry performed with routine [...] Recently Relevant to Health Maintenance Care Teams Pot Builder Relationship Specialty Start Date End Date Key Perez DO [address] [place] [address] PCP - General Family Practice 04/10/22
--- NOTE | 2023-12-03 10:22 | W.ANESCHARGE ---
Anesthesia Charges Start Date/Time Anesthesia Start Date: 12/03/23 Anesthesia Start Time: 10:00 Stop Date/Time Anesthesia Stop Date: 12/03/23 Anesthesia Stop Time: 10:19
--- NOTE | 2023-12-03 11:24 | W.ANESCHARGE ---
Anesthesia Charges Start Date/Time Anesthesia Start Date: 12/03/23 Anesthesia Start Time: 10:00 Stop Date/Time Anesthesia Stop Date: 12/03/23 Anesthesia Stop Time: 10:19 Summary Extremes of Age - Over 70 or under 1: MDA
== END 2023-12-03 09:17 | disposition home or self-care (01) ==
LOC: OP CLINIC 09:18
PROVIDERS: PCP Family Medicine; Visit Provider Internal Medicine Gastroenterology
DX: R11.15 Cyclical vomiting syndrome unrelated to migraine (principal); R19.8 Other specified symptoms and signs involving the digestive system and abdomen; R10.13 Epigastric pain; R63.4 Abnormal weight loss
CPT/HCPCS: 00731; 43239; 88305; 99100; J2704

== ENCOUNTER 2023-12-13 08:00 | Outpatient (CLI) | payer OTHER, SELFPAY ==
--- NOTE | 2023-12-13 08:00 | CRLHL7_ITS ---
For Patients: As a result of the Century Cures Act, medical imaging exams and procedure reports are released immediately into your electronic medical record. You may view this report before your referring provider. If you have questions, please contact your health care provider. INDICATION: Prior history of breast cancer. Weight loss. No skeletal pain. TECHNIQUE: 23.8 mCi Tc-99m labeled MDP administered. Delayed whole body images obtained with the patient at rest. COMPARISON: None. Correlation is made with a contrast-enhanced chest CT performed on the same date. FINDINGS: There is good uptake of activity by the skeleton. There is no scintigraphic evidence for skeletal metastatic disease. Minor arthritic type activity identified within the right shoulder, right sternoclavicular joint, right wrist, lower most lumbar spine, hips, and dorsal feet. Photopenic defect from a left breast prosthesis status post left mastectomy. The kidneys are present without obstruction. IMPRESSION: No scintigraphic evidence for skeletal metastatic disease. Dictated by Natalio Gomes MD @ 12/14/2023 9:25:11 AM (Electronically Signed)
--- OUTSIDE RECORDS SUMMARY | 2023-12-13 08:03 | XMS_ITS | Clinical Summary ---
Author Organization [employer] [facility] Address [place], [place] [address] Care Team Providers Care Cook Taco Name Role Phone Key Perez DO Primary Care Provider [phone] Allergies Active Allergy Reactions Criticality Noted Date [...] before breakfast. 90 Tablet 3 06/05/2023 Active Benazepril HCl 40 mg tabletIndication s:HTN (hypertension) Take 1 Tablet (40 mg) by mouth once daily. 90 Tablet 2 11/29/2023 Active omeprazole (PRILOSEC) 20 mg Delayed-Release capsuleIndicatio ns:Nausea and vomiting, unspecified vomiting type,Gastroesoph ageal reflux disease with esophagitis without hemorrhage Take 1 Capsule (20 mg) by mouth once daily before a meal. Take 30-60 minutes before a meal/food once a day. 30 Capsule 2 12/05/2023 Active Benazepril HCl 40 mg tabletIndication s:HTN (hypertension) Take 1 Tablet (40 mg) by mouth once daily. 90 Tablet 2 03/16/2023 4 Discontinue d(Reorder (E-cancel not sent)) cephalexin (KEFLEX) 500 mg capsuleIndicatio ns:Abscess Take 1 Capsule (500 mg) by mouth two times daily for 10 days. 20 Capsule 11/29/2023 4 Active Problems Problem Noted Date Diagnosed Date Eosinophilic esophagitis 12/05/2023 Overview: EGD 12/2023 EoE, try omeprazole Mild dementia without behavi oral disturbance, psychotic disturbance, mood disturbance, or anxiety, unspecified dementia type 07/25/2023 Mild neurocognitive disorder 08/17/2022 Depression, recurrent 01/20/2022 Hypokalemia 01/20/2022 HTN (hypertension) 01/20/2022 Hypothyroidism (acquired) 01/20/2022 History of gastric bypass 01/20/2022 Osteoporosis 01/20/2022 History of anemia 01/20/2022 History of breast cancer 01/20/2022 Encounters Date Type Department Care Team Description 12/06/2023 Telephone [facility] [address] [place] [address] Isma Hall MD Results 12/05/2023 Orders Only [facility] [address] [place] [address] Isma Hall MD <No scans attached> 12/03/2023 9:15 AM CDT Office Visit [facility] at [facility] [address] [place] [phone] Isma Hall MD 12/03/2023 Orders Only [facility] Scanner 1 scan: (1-Ord) [facility], UPPER GI ENDOSCOPY, 12/03/2023 12/03/2023 Lab Requisition [facility] [phone] Isma Hall MD 11/29/2023 3:10 PM CDT Preop Visit [facility] [address] [place] [address] Key Perez, Preoperative Exam (12/03/23 EGD [facility]); Immunization/Injecti on (COVID-19 vaccine) 11/29/2023 Travel 11/21/2023 Orders Only [facility] Scanner 1 scan: (1-Ord) [facility], DIAGNOSTIC MAMMO UNILAT RT, 11/21/2023 11/21/2023 Orders Only [facility] Scanner 1 scan: (1-Ord) [place], BREAST RT LMTD, 11/21/2023 10/04/2023 Lab Requisition [facility] [phone] Nabila Alcaraz MD 10/04/2023 Lab Requisition [facility] [phone] Nabila Alcaraz MD 09/28/2023 7:01 AM CDT - 09/28/2023 11:59 PM CDT Hospital Encounter [facility] [address] [place] [address] Nohemy Lomax Karolyn, DO Mass of cervix 09/28/2023 Travel 09/26/2023 Telephone [facility] [address] [facility] [address] Sir Lomaxi Karolyn, DO Results (Pelvic US/) 09/25/2023 1:00 PM CDT Ancillary Procedure [facility] [address] [facility] [address] 09/25/2023 Travel from Last 3 Months Immunizations Name Administration Dates Next Due COVID-19 Vaccine Spikevax (M oderna 50mcg/0.5mL) 12YO+ 1529-1100 Formula PF 11/29/2023,07/25/2023 COVID-19 vaccine (Moderna 100mcg/0.5mL) [...] Description 12/27/2023 3:10 PM CDT Office Visit [facility] [address] [place] [address] Key Perez DO [address] [place] [address] Health Maintenance Due Date Last Done Comments Tdap 1961 Lipids for age 45-75 10/06/1995 COVID-19 vaccine series ( season) 2024 11/29/2023, 07/25/2023, 05/22/2022, Additional history exists Influenza for age 65+ 03/02/2024 03/14/2023 , 03/08/2022, 04/19/2021 Colonoscopy through age 75 03/24/202403/24, 03/24/2021 (Completed outside of [facility]) Medicare Wellness for age 65+ 04/16/2024 04/16/2023, [...] Associated Diagnosis Comments LAB TRACKING EVENT Routine 12/03/2023 10:08 AM CDT PATH TISSUE EXAM Routine 12/03/2023 10:08 AM CDT ESOPHAGOGASTRODUODENOSCOPY Routine 12/02 8:03 AM CDT Upper abdominal pain Nausea and vomiting, unspecified vomiting type History of bariatric surgery Weight loss SCAN-ENDOSCOPY 12/03/2023 12:00 AM CDT POTASSIUM Routine 11/29/2023 4:16 PM CDT Pre-op exam SCAN-MAMMOGRAPHY REPORT 11/21/19 24 12:00 AM CDT SCAN-ULTRASOUND REPORT 12:00 AM CDT LAB TRACKING EVENT Routine 10/03/2023 8:50 AM CDT LAB TRACKING EVENT Routine 10/03/2023 8:50 AM CDT PATH TISSUE EXAM Routine 10/03/2023 8:50 AM CDT INSURANCE OPERATIONS REP THIN PREP PAP SCREEN IMAGED Routine 10/03/2023 [...] Health Maintenance Results * LAB TRACKING EVENT (12/03/2023 10:08 AM CDT) Only the most recent of3 resultswithin the time period is included. Other (Other) Client Collect / Unknown 12/03/2023 10:08 AM CDT 12/03/2023 9:47 PM CDT Isma Hall MD LAB BILL ONLY [facility] LAB[facility] [address] [place] [address], * PATH TISSUE EXAM (12/03/2023 10:08 AM CDT) Only the most recent of2 resultswithin the time period is included. Case Report Pathology Report ?Case: [id number] ? Authorizing Provider: ??Isma Hall MD ?? Collected: ? 12/03/2023 1008 ? Ordering Location: ? [facility] ?Received: ?12/04/2023 0817 ? Pathologist: ? Sheldon Kessler MD ? Specimens: ?? A) - Duodenum ? B) - Gastric Biopsy ? C) - Distal Esophagus Biopsy ? 12/05/2023 9:45 AM CDT [facility] ENTRAL LABORATORY Final Diagnosis A) DUODENUM, BIOPSY: 1. Normal duodenal mucosa 2. Negative for celiac disease and other enteropathy B) STOMACH, BIOPSY: 1. Gastric body mucosa with no diagnostic abnormalities 2. Negative for Helicobacter C) ESOPHAGUS, DISTAL, BIOPSY: 1. Esophageal eosinophilia (peak count of 10 eosinophils/HPF), see comment 2. Negative for columnar mucosa 12/05/2023 9:45 AM CDT [facility] Comment C) The differential diagnosis here is histologically mild eosinophilic esophagitis and GERD with more eosinophils than typical. 12/05/2023 9:45 AM CDT [facility] Clinical Information Persistent vomiting. Upper abdominal symptoms. Weight loss. History of duodenal switch procedure. Upper GI endoscopy showed no mucosal abnormalities. 12/05/2023 9:45 AM CDT [facility] Gross Description A) Received in formalin are 3 garsia mucosal fragments ranging from 3 mm to 4 mm in greatest dimension, which are entirely submitted in one cassette. It is labeled with the patient's name and designated duodenal BXS. B) Received in formalin are 4 garsia mucosal fragments ranging from 3 mm to 5 mm in greatest dimension, which are entirely submitted in one cassette. It is labeled with the patient's name and designated random gastric BXS. C) Received in formalin are 4 garsia mucosal fragments ranging from 3 mm to 5 mm in greatest dimension, which are entirely submitted in one cassette. It is labeled with the patient's name and designated distal esophagus BXS. Mami Patterson 12/04/2023 3:08 PM 12/05/2023 9:45 AM CDT [facility] Microscopic Description The final diagnosis is based on microscopic examination of appropriate sections of all specimens. C) The histologic findings include: ? Peak eosinophil count: See final diagnosis ? Intercellular edema: ? Mild ? Eosinophil microabscess: ? Absent ? Eosinophil surface layering: Absent ? Extracellular granules: ?Present 12/05/2023 9:45 AM CDT [facility] Additional Information Interpreted at [facility] Central Laboratory - [address] [facility] [address], [place] [address] 12/05/2023 9:45 AM CDT [facility] Other (Duodenum) 12/03/2023 10:08 AM CDT 12/04/2023 8:17 AM CDT Specimen (specimen) GASTRIC BIOPSY SPECIMEN / Unknown 12/03/2023 10:08 AM CDT 12/04/2023 8:17 AM CDT Specimen (specimen) (Distal Esophagus Biopsy) 12/03/2023 10:08 AM CDT 12/04/2023 8:17 AM CDT Isma Hall MD PATHOLOGY/CYTOLOG Y Performing Organization Address [facility] de Phone Number [facility] [address] * SCAN-ENDOSCOPY (12/03/2023 12:00 AM CDT) Scanner OTHER * POTASSIUM (11/29/2023 4:16 PM CDT) Pathologist [facility] POTASSIUM 4.2 3.5 - 5.1 mmol/L 11/30/2023 2:25 PM CDT [facility] Blood BLOOD SPECIMEN / Unknown Venipuncture / Unknown 11/29/2023 4:16 PM CDT 11/29/2023 4:17 PM CDT Key Perez DO CHEMISTRY Performing Organization Address [facility] de Phone Number [facility] [address] [place] [address], * SCAN-MAMMOGRAPHY REPORT (11/21/2023 12:00 AM CDT) Anatomical Region Laterality Modality Other Scanner OTHER * SCAN-ULTRASOUND REPORT (11/21/2023 12:00 AM CDT) Anatomical Region Laterality Modality Other Scanner OTHER * INSURANCE OPERATIONS REP THIN PREP PAP SCREEN IMAGED (10/03/2023 8:50 AM CDT) Case Report Gynecologic Cytology Report ? Case: [id number] ? Authorizing Provider: ??Nabila Alcaraz ?Collected: ? 10/03/2023 0850 ? Esther, MD ? Ordering Location: ? L CENTRAL LAB ?Received: ?10/04/2023 1701 ? First Screen: ?Baccam, Minie ? Rescreen: ?Jacki Strauss ? Specimen: ?INSURANCE OPERATIONS REP ThinPrep Vial Screening, Cervical ? 10/19/2023 11:33 AM CDT [facility] INTERPRETATION/ RESULT NEGATIVE FOR INTRAEPITHELIAL LESION OR MALIGNANCY (NIL) (none) 10/19/2023 11:33 AM CDT [facility] [employer] LABORATORY-C ENTRAL LABORATORY IMEN ADEQUACY Satisfactory for evaluation No endocervical component seen Scant cellularity 10/19/2023 11:33 AM CDT [facility] [employer] LABORATORY-C ENTRAL LABORATORY HPV REQUEST HPV and PAP 10/19/2023 11:33 AM CDT [facility] Abnormal Pap or [place] Bx in last 5 years No 10/19/2023 11:33 AM CDT [facility] Menstrual Status Postmenopausal 10/19/2023 11:33 AM CDT [facility] [place] Bx Done Today No 10/19/2023 11:33 AM CDT [facility] Additional Information 10/19/2023 11:33 AM CDT [facility] Comment: Interpreted at [facility] - [address], [place] [address] Automated Review Successful 10/19/2023 11:33 AM T [employer] Comment:Specimen processed s uccessfully by automated director financial analysis device, ThinPrep Imaging System, [employer] ANCILLARY TESTING INSURANCE OPERATIONS REP HPV Ordered, Please see separate report 10/19/2023 11:33 AM CDT [employer] Note The pap test is a screening technique, not a diagnostic procedure. It is used primarily to screen for squamous cancers and precursor lesions. Published studies have shown that it is subject to both false negative and false positive results. The pap test should not be used as the sole means to diagnose or exclude pre-malignant and malignant lesions. 10/19/2023 11:33 AM CDT [facility] Other (Cervical) 10/03/2023 8:50 AM CDT 10/04/2023 5:01 PM CDT Nabila Alcaraz MD PATHOLOGY/ CYTOLOGY [facility] [address] [place] [address], * HPV HIGH RISK (10/03/2023 8:50 AM CDT) TYPE 16 Negative Negative 10/08/2023 1:56 PM CDT [facility] TR[facility] LABORATORY TYPE 18 Negative Negative 10/08/2023 1:56 PM CDT [facility] TRAL LABORATORY OTHER HIGH RISK TYPES Negative Negative 10/08/2023 1:56 PM CDT [facility] TRAL LABORATORY Other (Cervical) 10/03/2023 8:50 AM CDT 10/04/2023 5:01 PM CDT [facility]ative [facility] 10/08/2023 1:56 PM CDT HPV types 16, 18, 31, 33, 35, 39, 45, 51, 52, 56, 58, 59, 66 and 68 DNA were undetectable or below the pre-set threshold. Methodology: Sindy Hood 4800 HPV Test Nabila Alcaraz MD MICROBIOLO GY [facility] [address] [place] [address], * MR PELVIS WWO (09/28/2023 8:00 AM [...] 09/26/2023 8:30:04 AM (Electronically Signed) Ami MOJICA * LC HCV ANTIBODY RFX TO QUANT PCR (01/23/2023 12:00 PM CDT) HCV Ab Non Reactive Non Reactive 01/25/2023 1:09 PM CDT [facility] Blood BLOOD SPECIMEN / Unknown Venipuncture / Unknown 01/23/2023 12:00 PM CDT 01/23/2023 12:02 PM CDT Narrative [facility] ([facility]) - 01/25/2023 1:09 PM CDT Performed at: ??01 - [facility] [address] [place], [place] ??[id number] Pain Management Physician: Donato Rendon MD, Phone: ??[phone] Key Perez DO LABORATORY [facility] ([facility]) [facility] [place], [place] [address] * (ABNORMAL) XR DXA BONE DENSITY 2 [...] to assess therapeutic efficacy. Randi Martinez PA-C [facility] 11/01/2022 Narrative 11/01/2022 1:02 PM CDT For Patients: Results are automatically released to your [employer] account once available, in compliance with federal regulations. This means that you may see your results before your provider has had a chance to review them. Please allow 2-3 business days for your provider to comment on the results. XR DXA Bone Mineral Density (BMD) EXAM LOCATION: [facility] [address] [facility] [address] PATIENT NAME: Dhaval Torres DATE OF : [...] two scanners are made by the same tooth polisher. PROCEDURE: Dual-energy x-ray absorptiometry performed with routine [...] Recently Relevant to Health Maintenance Care Teams Cook Taco Relationship Specialty Start Date End Date Key Perez DO [address] [place] [address] PCP - General Family Practice 04/10/22
[2023-12-13 08:51] LABS: Creatinine* 0.7 mg/dL (0.5-1.5); Estimated Glomerular Filt Rate 91 ml/min
--- NOTE | 2023-12-13 09:00 | CRLHL7_ITS ---
For Patients: As a result of the Century Cures Act, medical imaging exams and procedure reports are released immediately into your electronic medical record. You may view this report before your referring provider. If you have questions, please contact your health care provider. INDICATION: Unintentional weight loss. History of left-sided breast cancer status post mastectomy. Prior gastric bypass. TECHNIQUE: Contrast-enhanced chest CT. 75 cc of nonionic Isovue-370 administered. COMPARISON: Correlation is made with a whole body bone scan performed on the same date. FINDINGS: Both lungs are expanded and clear. No pneumothoraces nodules or infiltrates. There are no pleural or pericardial effusions. Surgically absent left breast with reconstruction/implant. The [place] right breast is unremarkable. There may be a biopsy clip in the inferomedial right breast, image 67 series 2. There is no evidence for thoracic lymphadenopathy. The included thyroid gland, trachea and mainstem bronchi, and thoracic aorta are within normal limits. No thoracic or upper abdominal lymphadenopathy. Postsurgical change from gastric bypass surgery. Surgically absent gallbladder. No splenomegaly. No definite hydronephrosis although neither kidney is fully or optimally included. Dense arterial vascular calcification within the proximal abdominal aorta. The included skeleton is negative for lytic or blastic lesions. No acute fractures. Compression fractures of T7 and T8, image 46 series 5 appear chronic. IMPRESSION: 1. No evidence for occult malignancy or metastatic disease within the chest. 2. Old compression fractures of T7 and T8. 3. Surgically absent left breast. No lymphadenopathy. No intrapulmonary nodules or masses. 4. Postsurgical change in the upper abdomen. Presumed biopsy clip inferomedial right breast. Please note that all CT scans at this facility use dose modulation, iterative reconstruction, and/or weight-based dosing when appropriate to reduce radiation dose to as low as reasonably achievable. Dictated by Natalio Gomes MD @ 12/14/2023 9:30:16 AM (Electronically Signed)
== END 2023-12-13 08:01 | disposition home or self-care (01) ==
LOC: NM 08:01
PROVIDERS: PCP Family Medicine; Visit Provider Physician Assistant
DX: Z85.3 Personal history of malignant neoplasm of breast (principal); R63.4 Abnormal weight loss; M48.54XD Collapsed vertebra, not elsewhere classified, thoracic region, subsequent encounter for fracture with routine healing
CPT/HCPCS: 36415; 71260; 78306; 82565; A9503; Q9967

== ENCOUNTER 2023-12-27 11:10 | Outpatient (RCR) | payer OTHER, SELFPAY | END 2024-05-06 23:59 | disposition home or self-care (01) | LOC: CCIC 11:10 | PROVIDERS: PCP Family Medicine; Visit Provider Physician Assistant | DX: C50.912 Malignant neoplasm of unspecified site of left female breast (principal); Z17.0 Estrogen receptor positive status [ER+]; M81.0 Age-related osteoporosis without current pathological fracture; E03.9 Hypothyroidism, unspecified; G31.84 Mild cognitive impairment of uncertain or unknown etiology; Z90.12 Acquired absence of left breast and nipple; Z79.810 Long term (current) use of selective estrogen receptor modulators (SERMs) | CPT/HCPCS: 99215; G0463 ==

== ENCOUNTER 2024-08-11 10:31 | Outpatient (RCR) | payer MEDICARE, BC, SELFPAY | END 2025-02-07 23:59 | disposition home or self-care (01) | LOC: CCIC 10:31 | PROVIDERS: PCP Family Medicine; Visit Provider Physician Assistant | DX: C50.912 Malignant neoplasm of unspecified site of left female breast (principal); Z17.0 Estrogen receptor positive status [ER+]; M81.0 Age-related osteoporosis without current pathological fracture; G31.84 Mild cognitive impairment of uncertain or unknown etiology; Z79.810 Long term (current) use of selective estrogen receptor modulators (SERMs) | CPT/HCPCS: 99214; 99215; G0463 ==

== ENCOUNTER 2025-02-10 13:18 | Outpatient (REF) | payer MEDICARE, BC, SELFPAY ==
[2025-02-10 14:05] LABS: Chloride* 105 mmol/L (96-114); Sodium* 133 mmol/L (135-149)
[2025-02-10 14:06] LABS: Potassium* 5.2 mmol/L (3.6-5.1)
[2025-02-10 14:08] LABS: Blood Urea Nitrogen* 13 mg/dL (7-30); Creatinine* 0.8 mg/dL (0.5-1.5); Estimated Glomerular Filt Rate 77 ml/min
[2025-02-10 14:09] LABS: Anion Gap 4 mEq/L (7-15); Calcium* 8.3 mg/dL (8.4-10.6); Carbon Dioxide* 24 mmol/L (20-32); Glucose* 61 mg/dL (60-115)
--- OUTSIDE RECORDS SUMMARY | 2025-02-11 00:16 | XMS_ITS | Clinical Summary ---
Author Organization [facility] Address [address] [place] [address] Care Team Providers Care Airfield Services Officer Name Role Phone Key Perez DO Primary Care Provider +1- [phone] Allergies Active Allergy Reactions Criticality Noted Date Comments Codeine Headache 04/19/2021 Grass Pollen Rash 04/19/2021 Medications tamoxifen (NOLVADEX) 20 mg tablet Take 20 mg by mouth once daily. 12/31/19 22 Active potassium chloride (K-TAB) 10 mEq extended-rele ase tabletIndicat ions:Hypokale carmen TAKE 1 TABLET BY MOUTH ONCE DAILY WITH A MEAL 180 Tablet 3 02/08/20 24 Active levothyroxine (SYNTHROID) 75 mcg tabletIndicat ions:Hypothyr oidism (acquired) Take 1 Tablet (75 mcg) by mouth before breakfast. 90 Tablet 3 07/01/20 24 Active cholecalcifer ol 2,000 unit capsule Take 2,000 units by mouth once daily. Active calcium-vitam in D3-vitamin K 650 mg-12.5 mcg-40 mcg chew Chew 4 Tablets by mouth once daily. 01/08/20 25 Active acetaminophen SR (Tylenol Arthritis Pain) 650 mg Extended-Rele ase tablet 1 tablet BID Max acetaminophen dose: 4000mg in 24 hrs. 01/08/20 25 Active venlafaxine (EFFEXOR) 100 mg tabletIndicat ions:Depressi on, recurrent Take 1 Tablet (100 mg) by mouth two times daily with meals. Dose decrease as of 09/02/2024 180 Tablet 02/05/20 25 Active Benazepril HCl 40 mg tabletIndicat ions:HTN (hypertension ) TAKE 1 TABLET(40 MG) BY MOUTH DAILY 90 Tablet 02/11/20 25 Active Benazepril HCl 40 mg tabletIndicat ions:HTN (hypertension ) TAKE 1 TABLET(40 MG) BY MOUTH DAILY 90 Tablet 1 07/27/19 25 2024 Discontinued venlafaxine (EFFEXOR) 100 mg tabletIndicat ions:Depressi on, recurrent Take 1 Tablet (100 mg) by mouth two times daily with meals. Dose decrease as of 09/02/2024 180 Tablet 09/03/19 25 2024 Discontinued(R eorder (E-cancel not sent)) Active Problems Problem Noted Date Diagnosed Date Hypocalcemia 04/03/2024 Overview (04/03/2024): Had labs showing likely secondary hyperparathyroidism likely from history gastric bypass Eosinophilic esophagitis 12/05/2023 Overview (12/05/2023): EGD 12/2023 EoE, try omeprazole Mild dementia without behavi oral disturbance, psychotic disturbance, mood disturbance, or anxiety, unspecified dementia type 07/25/2023 Mild neurocognitive disorder 08/17/2022 Depression, recurrent 01/20/2022 Hypokalemia 01/20/2022 HTN (hypertension) 01/20/2022 Hypothyroidism (acquired) 01/20/2022 History of gastric bypass 01/20/2022 Osteoporosis 01/20/2022 History of anemia 01/20/2022 History of breast cancer 01/20/2022 Encounters Date Type Department Care Team Description 02/07/2025 Refill [facility] [address] [place] [address] Key Perez DO Refill Request (Benazepril Hcl) 02/02/2025 Refill [facility] [address] [place] [address] Key Perez DO Refill Request (Venlafaxine) 01/07/2025 Telephone [facility] [address] [place] [address] Key Perez DO Medication Management (clarifications ) 01/06/2025 Telephone [facility] [address] [facility] [address] Key Perez DO Form (Scanned orders on 01/05) 12/29/2024 10:30 AM CDT Nurse/Clinic Staff Only [facility] [address] [facility] [address] Immunization/Inject ion (Prolia injection) 12/29/2024 Travel 12/22/2024 Telephone [facility] [place] [address] Key Perez DO Medication Management 11/27/2024 Telephone [facility] [place] [address] Key Perez DO Results 11/26/2024 3:15 PM CDT Orders Only [facility] [address] [place] [address] Lab, [place] [facility] 11/26/2024 Telephone [facility] [place] [address] Key Perez DO med refill 11/26/2024 Travel from Last 3 Months Immunizations Immunization Administration Dates Next Due COVID-19 VACCINE SPIKEVAX (M ODERNA 50MCG/0.5ML) 12YO+ PFS 11/29/2023,07/25/2023 COVID-19 vaccine (Moderna 100mcg/0.5mL) PF, MDV 09/26/2020,08/29/2020 COVID-19 vaccine (Pfizer-BioNTech 30mcg/0.3mL) P F, MDV 06/22/2021 Influenza, High-dose Inactivated 04/12/2024 Influenza, High-dose Quadrivalent Inactivated Influenza, Inactivated AIIV4 [...] Answer Date Recorded PHQ-2 TOTAL SCORE 1 05/12/2024 Social Connections Answer Date Recorded Do you often feel lonely or isolated from those around you? 0 05/12/2024 Alcohol Use Answer Date Recorded How often do you have a drink containing alcohol ? 1 04/11/2022 How many drinks containing a lcohol do you have on a typical day when you are drinking? 0 04/11/2022 How often do you have five or more drinks on one occasion? 0 04/11/2022 Financial Resource Strain Answer Date R ecorded Difficulty of Paying Living Expenses 3 05/12/2024 Difficulty of Paying Living Expenses Not on file 05/12/2024 Food Insecurity Answer Date Recorded Do you worry your food will run out before you are able to buy more? 1 05/12/2024 Transportation Needs Answer Date Record ed Does lack of transportation keep you from medica l appointments? 1 05/12/2024 Does lack of transportation keep you from work, meetings or getting things that you need? 1 05/12/2024 Housing Stability Answer Date Recorded What is your housing situation today? 1 05/12/2024 Utilities Answer Date Recorded Do you have trouble paying f or utilities (for example, heat, electricity, water, phone)? 1 05/12/2024 Comments No Sex and Gender Information Value Date Recorded Sex Assigned at Not on file Legal Sex Female 7:12 PM CDT Gender Identity Not on file Sexual Orientation Not on file Obstetrics History Para Term AB IAB SAB Ectopic Multiple Livin g Live Births 0 0 0 0 0 0 0 0 0 0 0 Last Filed Vital Signs Vital Sign Reading Time Taken Comments Blood Pressure 103/70 09/30/2024 11:27 AM CDT Pulse 77 09/30/2024 11:27 AM CDT Temperature 37.3 C (99.1 F) 03/28/2023 4:27 PM CDT Respiratory Rate 18 03/28/2023 4:27 PM CDT Oxygen Saturation 99% 09/02/2024 10:59 AM BROADCAST SUPERVISOR Inhaled Oxygen Concentration - - Weight 56.7 kg (125 lb) 09/30/2024 11:27 AM CDT Height 158.1 cm (5' 2.24) 05/12/2024 1:31 PM CS T Body Mass Index 22.68 05/12/2024 1:31 PM BROADCAST SUPERVISOR Plan of Treatment Health Maintenance Due Date Last Done Comments Lipids for age 45-75 10/06/1995 Colonoscopy through age 75 03/24/202403/24, 03/24/2021 (Completed outside of [facility] COVID-19 vaccine series (8 - Mixed Product risk season) 2024 03/06/2024, 11/29/2023, 07/25/2023, Additional history exists Mammogram for age 45-75 11/20/2024 11/21/19 24, 04/30/2023, 04/17/2023, Additional history exists Influenza Vaccine (#1) 2025 , 03/14/2023, 03/08/2022 BMI (ht and wt on same day) for age 18+ 05/12/2025 05/12/2024, 11/29/2023, 04/16/2023, Additional history exists Medicare Wellness for age 65+ 05/13/2025 05/12/2024, 04/16/2023, 04/11/2022 Depression screening for age 12+ 05/15/2025 05/15/2024, 05/12/2024, 05/12/2024, Additional history exists Tetanus booster 03/16/2030 03/16/2020 Pneumococcal series for age 50+ Completed 03/08/2022 DEXA/DXA scan for age 65+ Completed 10/30/2022 Hepatitis C screening for age 18-79 Completed 01/23/2023 RSV vaccine for adults or Completed 05/19/2023 Zoster (shingles) series for age 50+ Completed 05/19/2023, 12/12/2022 Hepatitis B series for 19+ Aged Out N o longer eligible based on patient's age to complete this topic Procedures Procedure Name Priority Date/Time Associated Diagnosis Comments CALCIUM Routine 11/26/2024 3:34 PM CDT Hypocalcemia SCAN-MAMMOGRAPHY REPORT 11/21/2023 12:00 AM CDT LC HCV ANTIBODY RFX TO QUANT PCR Routine 01/23/2023 12:00 PM CDT Need for hepatitis C screening test XR DXA BONE DENSITY 2 SITES AXIAL Routine 10/30/2022 12:00 PM CDT Osteoporosis, unspecified osteoporosis type, unspecified pathological fracture presence SCAN-COLONOSCOPY 03/24/2021 12:0 0 AM CDT from Last 3 Months or Most Recently Relevant to Health Maintenance Results * (ABNORMAL) CALCIUM (11/26/2024 3:34 PM CDT) CALCIUM 8.4(L) 8.6 - 10.4 mg/dL [facility] Blood BLOOD SPECIMEN / Unknown 11/26/2024 3:34 PM CDT 11/26/2024 3:35 PM CDT Key Perez DO CHEMISTRY Final Resu lt [email or web address] [address] [place] [address], [place] [phone] [facility] [address] [place] [address] * SCAN-MAMMOGRAPHY REPORT (11/21/2023 12:00 AM CDT) Anatomical Region Laterality Modality Other us Scanner OTHER Final Result * LC HCV ANTIBODY RFX TO QUANT PCR (01/23/2023 12:00 PM CDT) HCV Ab Non Reactive Non Reactive 01/25/2023 1:[address] [facility] Blood BLOOD SPECIMEN / Unknown Venipuncture / Unknown 01/23/2023 12:00 PM CDT 01/23/2023 12:02 PM CDT Narrative [facility] ([facility]) - 01/25/2023 1:09 PM CDT Performed at: 01 - [facility] [address] [place] [id number] Astronautical Engineer: Donato Rendon MD, Phone: [phone] us Key Ann Chris DO LABORATORY Final Resu lt [facility] ([facility]) [address] [place] [address], * (ABNORMAL) XR DXA BONE DENSITY 2 [...] to assess therapeutic efficacy. Randi Martinez PA-C [facility] 11/01/2022 Narrative 11/01/2022 1:02 PM CDT For Patients: Results are automatically released to your [employer] ([employer]) account once available, in compliance with federal regulations. This means that you may see your results before your provider has had a chance to review them. Please allow 2-3 business days for your provider to comment on the results. XR DXA Bone Mineral Density (BMD) EX[facility] [address] [facility] [address] PATIENT NAME: Dhaval A Nordstrand DATE OF : 1950 EXAM DATE: 10/30/2022 REQUESTING PROVIDER: Key Perez DO GENDER AT : female HEIGHT: 5' 2.6 (04/11/2022) WEIGHT: 162 lb (10/26/2022) MENOPAUSAL STATUS: Postmenopausal RACE/ETHNICITY: White [...] two scanners are made by the same spot worker. PROCEDURE: Dual-energy x-ray absorptiometry performed with routine [...] 3.3 Z-Score: - 1.8 Change from prior: None RESULTS FEMUR Left femoral neck BMD: 0.641 g/cm2 T-Score: - 2.9 Z-Score: - 1.3 Change from prior: None Right femoral neck BMD: 0.667 g/cm2 T-Score: - 2.7 Z-Score: - 1.1 Change from prior: None Left hip BMD: 0.687 g/cm2 T-Score: - 2.5 Z-Score: - 1.2 Change from prior: None Right hip BMD: 0.675 g/cm2 T-Score: - 2.6 Z-Score: - 1.3 Change from prior: None WHO criteria: Normal: T-score at or above -1 SD Osteopenia: T-score between -1.1 and -2.4 SD Osteoporosis: T-score at or below -2.5 SD us Key Perez DO DEXA Final Resu lt * SCAN-COLONOSCOPY (03/24/2021 12:00 AM CDT) us Scanner OTHER Final Result from Last 3 Months or Most Recently Relevant to Health Maintenance Insurance MEDICARE PART A HB ONLY BLUE CROSS [place] BLUE MR PB ONLY Advance Directives Documents on File Type Date Recorded Patient 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
--- OUTSIDE RECORDS SUMMARY | 2025-02-11 00:16 | XMS_ITS | Clinical Summary ---
Author Organization [facility] Address [address] [place] [address] Care Team Providers Care Hand Marker Name Role Phone Unavailable Primary Care Provider Unavailabl e Source Comments Patient records contain information from all sites at [facility]. For routine questions regarding patient records, call [phone] during business hours, M-F 8:00 AM - 5:00 PM Central Time. Record requests for emergency care only can be directed to [phone] at any time.[facility] Social History Tobacco Use Types Packs/Day Years Used Date Smoking Tobacco: Never Assessed Comments Unknown Sex and Gender Information Value Date Recorded Sex Assigned at Not on file Legal Sex Female 11:17 AM CDT Gender Identity Not on file Sexual Orientation Not on file Plan of Treatment Health Maintenance Due Date Last Done Comments CT Colonography 1950 Cologuard 1950 FIT 1950 Hepatitis C Screening 1950 DTaP,Tdap,and Td Vaccines (1 - Tdap) 03/17/2020 03/16/2020 COVID-19 Vaccine ( season) 2024 11/29/2023, 07/25/2023, 05/22/2022, Additional history exists Mammogram 04/17/2024 04/17/2023, 12/07/2021 Depression Screening (Annual PHQ-2) 07/02/2024 Fall Risk Screen (Annual) 07/02/2024 Influenza Vaccine (#1) 2025 , 03/14/2023, 03/08/2022, Additional history exists Fasting Glucose for Diabetes Screening 03/10/2027 03/10/2024, 08/24/2023, 12/14/2022, Additional history exists Colonoscopy 03/24/2031 03/24/2021 Colorectal Cancer Screening 03/24/2031 Pneumococcal vaccine (50+ years) Completed 03/08/2022 Bone Density Scan (Osteoporosis Screen) Discontinued 10/30/2022 Zoster Vaccines Completed 05/19/2023, 12/12/2022 IPV Vaccines Aged Out No longer eligi ble based on patient's age to complete this topic Procedures Procedure Name Priority Date/Time Associated Diagnosis Comments OUTSIDE MG MAMMOGRAM Routine 04/17/2023 9:00 AM CDT from Last 3 Months or Most Recently Relevant to Health Maintenance Results * MM diagnostic mammo unilat RT-Outside Mammogram (04/17/2023 9:00 AM CDT) Narrative [facility] - 04/26/2023 10:24 AM CDT This order has been created and auto-finalized to support the import of outside images. If available, original interpretation can be found on the Media Tab in Chart Review, in Document Viewer, or as an image in QREADS. If a re-interpretation or overread is required please follow defined workflow. us Provider Not In System IMG BI PROCEDURES Final R esult [facility] NA from Last 3 Months or Most Recently Relevant to Health Maintenance
== END 2025-02-10 13:19 | disposition home or self-care (01) ==
LOC: NPINS 13:18
PROVIDERS: PCP Family Medicine; Visit Provider Nurse Practitioner Gerontology
DX: D64.9 Anemia, unspecified (principal); I10 Essential (primary) hypertension
CPT/HCPCS: 80048; 84443; 85025

== ENCOUNTER 2025-02-12 16:14 | Outpatient (REF) | payer MEDICARE, BC, SELFPAY ==
[2025-02-12 23:04] LABS: Hematocrit* 37.6 % (33.0-51.0); Hemoglobin* 12.1 gm/dL (12.0-16.0); Immature Granulocytes Pct Auto 0.2 %; Lymphocytes Absolute Auto 1.20 K/uL (0.90-2.90); Mean Corpuscular HGB Conc 32 gm/dL (32-36); Mean Corpuscular Hemoglobin 32 pg (26-34); Mean Corpuscular Volume 99 fL (80-100); RDW Coefficient of Variation % 12.6 % (11.5-15.5); Red Blood Count* 3.80 m/uL (4.00-5.20); White Blood Count* 4.41 K/uL (4.50-11.00)
[2025-02-12 23:09] LABS: Immature Granulocytes Abs Auto 0.00 K/uL (0.00-0.30); Slide Review Reflex No
--- OUTSIDE RECORDS SUMMARY | 2025-02-13 00:14 | XMS_ITS | Clinical Summary ---
Author Organization [facility] Address [address] [place] [address] Care Team Providers Care Associate Trainer Name Role Phone Key Perez DO Primary Care Provider +1- [phone] Allergies Active Allergy Reactions Criticality Noted Date [...] Type Department Care Team Description 02/07/2025 Refill [facility] [address] [place] [address] Key Perez DO Refill Request (Benazepril Hcl) 02/02/2025 Refill [facility] [address] [place] [address] Key Perez DO Refill Request (Venlafaxine) 01/07/2025 Telephone [facility] [address] [place] [address] Key Perez DO Medication Management (clarifications ) 01/06/2025 Telephone [facility] [address] [facility] [address] Key Perez DO Form (Scanned orders on 01/05) 12/29/2024 10:30 AM CDT Nurse/Clinic Staff Only [facility] [address] [facility] [address] Immunization/Inject ion (Prolia injection) 12/29/2024 Travel 12/22/2024 Telephone [facility] [place] [address] Key Perez DO Medication Management 11/27/2024 Telephone [facility] [address] [place] [address] Key Perez DO Results 11/26/2024 3:15 PM CDT Orders Only [facility] [address] [facility] [place] [address] Lab, [place] [facility] 11/26/2024 Telephone [facility] [place] [address] Key Perez DO med refill 11/26/2024 Travel [...] CDT Oxygen Saturation 99% 09/02/2024 10:59 AM CRULLER MAKER MACHINE Inhaled Oxygen Concentration - - Weight 56.7 kg (125 lb) 09/30/2024 11:27 AM CDT Height 158.1 cm (5' 2.24) 05/12/2024 1:31 PM CS T Body Mass Index 22.68 05/12/2024 1:31 PM CRULLER MAKER MACHINE Plan of Treatment Health Maintenance Due Date Last Done Comments Lipids for age 45-75 10/06/1995 Colonoscopy through age 75 03/24/202403/24, 03/24/2021 ([facility] COVID-19 vaccine series (8 - Mixed Product [...] CDT) CALCIUM 8.4(L) 8.6 - 10.4 mg/dL [facility] Mcmullen Blood BLOOD SPECIMEN / Unknown 11/26/2024 3:34 PM CDT 11/26/2024 3:35 PM CDT Key Perez DO CHEMISTRY Final Resu lt [facility] [address] [place] [address], [place] [phone] [email or web address] [address] [place] [address] * SCAN-MAMMOGRAPHY REPORT (11/21/2023 12:00 AM CDT) Anatomical Region Laterality Modality Other us Scanner OTHER Final Result * LC HCV ANTIBODY RFX TO QUANT PCR (01/23/2023 12:00 PM CDT) HCV Ab Non Reactive Non Reactive 01/25/2023 1:09 PM CDT [facility] Blood BLOOD SPECIMEN / Unknown Venipuncture / Unknown 01/23/2023 12:00 PM CDT 01/23/2023 12:02 PM CDT Narrative [facility] ([facility]) - 01/25/2023 1:09 PM CDT Performed at: 01 - [facility] [address] [place] [id number] Spud Driller: Donato Rendon MD, Phone: [phone] us Key Ann Chris DO LABORATORY Final Resu lt [facility] ([facility]) [address] [place] [address], * (ABNORMAL) XR DXA BONE DENSITY 2 [...] to assess therapeutic efficacy. Randi Martinez PA-C [facility] 11/01/2022 Narrative 11/01/2022 1:02 PM CDT For Patients: Results are automatically released to your [email or web address] account once available, in compliance with federal regulations. This means that you may see your results before your provider has had a chance to review them. Please allow 2-3 business days for your provider to comment on the results. XR DXA Bone Mineral Density (BMD) EXAM LOCATION: [facility] [address] [facility] [address] PATIENT NAME: Dhaval A Nordstrand DATE OF [...] two scanners are made by the same pattern checker. PROCEDURE: Dual-energy x-ray absorptiometry performed with routine [...] MEDICARE PART A HB ONLY BLUE CROSS [employer] BLUE MR PB ONLY Advance Directives Documents on File Type Date Recorded Patient Titrator Expl anation Healthcare Directive 05/16/2024 11:26 AM ACTIVE Care Teams Associate Trainer Relationship Specialty Start Date End Date Key Perez [place] [address] PCP - General Family Practice 04/10/22
--- OUTSIDE RECORDS SUMMARY | 2025-02-13 00:14 | XMS_ITS | Clinical Summary ---
Author Organization [facility] Address [address] [place] [address] Care Team Providers Care Shrimping Boat Captain Name Role Phone Unavailable Primary Care Provider Unavailabl e Source Comments Patient records contain information from all sites at [facility]. For routine questions regarding patient records, call [phone] during business hours, M-F 8:00 AM - 5:00 PM Central Time. Record requests for emergency care only can be directed to [phone] at any time.[facility] Social History Tobacco Use Types Packs/Day Years [...]
== END 2025-02-12 16:15 | disposition home or self-care (01) ==
LOC: NPINS 16:14
PROVIDERS: PCP Family Medicine; Visit Provider Nurse Practitioner Gerontology
DX: D64.9 Anemia, unspecified (principal); I10 Essential (primary) hypertension
CPT/HCPCS: 85025

== ENCOUNTER 2025-03-03 13:48 | Outpatient (REF) | payer MEDICARE, BC, SELFPAY ==
--- OUTSIDE RECORDS SUMMARY | 2020-03-30 06:30 | XMS_ITS | Continuity of Care Document ---
Author Organization [facility] Address [address] [place] [address] Phone Care Team Providers Care Ticket Attendant Name Role Phone Chito Johns MD Unavailable Unavailable Allergies, Adverse Reactions, Alerts Substance Reaction Status Criticality codeine Unknown Active No Information Medications Medication Instructions Dosage Effective Dates (start - stop) Status Comments Ridgway 5 mg-325 mg tablet take 1 tablet by oral route every 4 - 6 hours as needed for pain 1 tablet - Active foot/ankle surgery Percocet 5 mg-325 mg tablet take 1 tablet by oral route every 6 hours as needed 1 tablet - Active Synthroid 25 mcg tablet - Active Effexor XR 75 mg capsule,extended release - Active losartan 25 mg tablet - Active Restasis 0.05 % eye drops in a dropperette - Active potassium 99 mg tablet - Active Procedures Procedure Date Xray Foot; 3 Views Post Op Follow Up Visit Xray Foot; 3 Views Post Op Follow Up Visit Surgical Boot/Shoe Xray Foot; 3 Views Office/Estab Detailed Post Op Follow Up Visit Post Op Follow Up Visit Strapping Of Hand Or Finger Splint supplies misc Adjacent Tissue Transfer Capsulectomy/otomy IP Joint Ea 17 Partial Excision Bone Metacarpal 2016 OV Expanded Xray Finger(s); 2 Views Office/New Detailed OP Xray Finger(s); 2 Views Office/Estab Detailed Office/Estab Detailed Visit Office/Estab Expanded Visit Office/Estab Expanded Visit Office/Estab Expanded Visit Office/New Detailed OP Visit Inject/Aspir; Major Jt/bursa Ultrasonic Guide; Needle Placement Kenalog-40 Per 40mg (Triamcinolone aceto nide) Advance Directives Directive Yes / No Effective Date File Name No Information Encounters Encounter Description Practice Location Reason(s) For Visit Diagnoses Date Provider Providers Copied on Encounter [facility], [address] [place] [address], [id number], tel:[phone] [address] [place] [address] Right foot pain Sep-2 0 Nat Dale. [address] [place] [address], [id number] , [place]. tel:[phone] Referring Provider: Chito Tracey, [address] [place] [address], [id number] . tel:[phone] [facility], [address] [place] [address], [id number], tel:[phone] [facility] Right foot pain Sep-0 0 Nat Dale. [address] [place] [address], [id number] , . tel:[phone] Referring Provider: Chito Tracey, [address] [place] [address], [id number] . tel:[phone] [facility], [address] [place] [address], [id number], tel:[phone] [address] [place] [address] No Information Jan- 0 Nat Dale. [address] [place] [address], [id number] , [place]. tel:[phone] Referring Provider: Chito Tracey, [address] [place] [address], [id number] . tel:[phone] [facility], [address] [place] [address], [id number], [place] tel:[phone] [facility] No Information 0 Nat Dale. [address] [place] [address], [id number] , [place]. tel:[phone] Office/Estab Detailed [facility], [address] [place] [address], [id number], [place] tel:[phone] [facility] Right foot pain 0 Nat Dale. [address] [place] [address], [id number] , [place]. tel:[phone] Referring Provider: Chito Tracey, [address] [place] [address], [id number] . tel:[phone] [facility], [address] [place] [address], [id number], [place] tel:[phone] [facility] right hand pain (chief complaint) Right hand pain 8 Carline Smith. [address] [place] [address], [id number] , [place]. tel:[phone] Referring Provider: Luis Crowley, [address] [place] [address], [address] . tel:[phone] [facility], [address] [place] [address], [id number], [place] tel:[phone] [facility] right hand pain (chief complaint) Finger pain, right Jun- 7 Carline Smith. [address] [place] [address], [id number] , [place]. tel:[phone] Referring Provider: Luis Crowley, [address] [place] [address], [id number] . tel:[phone] [facility], [address] [place] [address], [id number], tel:[phone] [address] [place] [address] [facility] No Information 7 Carline Smith. [address] [place] [address], [id number] , . tel:[phone] Referring Provider: Luis Crowley, [address] [place] [address], [id number] . tel:[phone] [facility], [address] [place] [address], [id number], tel:[phone] [facility] right hand pain (chief complaint) Right hand pain 7 Carline Smith. [address] [place] [address], [id number] , . tel:[phone] Referring Provider: Luis Crowley, [address] [place] [address], [id number] . tel:[phone] Office/New Detailed OP [facility], [address] [place] [address], [id number], tel:[phone] [facility] right hand pain (chief complaint) Finger pain, right 7 Carline Smith. [address] [place] [address], [id number] , [place]. tel:[phone] Referring Provider: Luis Crowley, [address] [place] [address], [id number] . tel:[phone] Office/Estab Detailed [facility], [address] [place] [address], [id number], tel:[phone] [facility] right hand pain (chief complaint) Right hand pain 7 Marcelino Lduwig. [address] [place] [address], [id number] , [place]. tel:[phone] Referring Provider: Oziel Cardenas, [address] [place] [address], [id number] . tel:[phone] Office/Estab Detailed Visit [facility], [address] [place] [address], [id number], tel:[phone] [facility] foot pain on the right greater than the left (chief complaint) Pain in rt foot 5 Marcelino Ludwig. [address] [place] [address], [id number] , [place]. tel:[phone] Referring Provider: Oziel Benson MD W, [address] [place] [address], [id number] . tel:[phone] Office/Estab Expanded Visit [facility], [address] [place] [address], [id number], tel:[phone] [facility] left knee pain (chief complaint) No Information 5 Marcelino Ludwig. [address] [place] [address], [id number] , [place]. tel:[phone] Referring Provider: Oziel Benson MD W, [address] [place] [address], [address] . tel:[phone] Office/Estab Expanded Visit [facility], [address] [place] [address], [id number], tel:[phone] [facility] left knee pain (chief complaint) Pain Knee/Patella /Tibia/LL 4 Marcelino Ludwig. [address] [place] [address], [id number] , [place]. tel:[phone] Referring Provider: Oziel Cardenas, [address] [place] [address], [id number] . tel:[phone] Office/Estab Expanded Visit [facility], [address] [place] [address], [id number], tel:[phone] [facility] left knee pain (chief complaint) Pain Knee/Patella /Tibia/LL 4 Marcelino Ludwig. [address] [place] [address], [id number] , . tel:[phone] Referring Provider: Oziel Cardenas, [address] [place] [address], [id number] . tel:[phone] Office/New Detailed OP Visit [facility], [address] [place] [address], [id number], tel:[phone] [facility] left knee pain (chief complaint) Pain Knee/Patella /Tibia/LL 4 Marcelino Ludwig. [address] [place] [address], [id number] , [place]. tel:[phone] Referring Provider: Oziel Cardenas, [address] [place] [address], [id number] . tel:[phone] Family History Family Member Type Diagnosis Age At Onset Father Problem (finding) osteoarthritis Mother Problem (finding) osteoarthritis Payers Payer name Insurance type Covered alliance party ID Authorkarlowanda zacharydeepali(s) [employer] [facility] PPO CI [id number] Social History Type Description Quantity Date Captured Comments Alcohol Use Details Unknown Caffeine Use Details Unknown Tobacco Use Status No Information Smoking Status No Information Sex Female Chief Complaint And Reason For Visit No Information Reason For Referral Reason For Referral No Information Plan Of Treatment Date Type Action Status Referral Ordered: Xray Foot; 3 Views RT foot ordered Referral Ordered: Xray Finger(s); 2 Views RT small finger ordered Referral Ordered: Xray Knee; 3 Views (Standing) LT knee ordered History Of Present Illness Encounter Date Complaint History Of Prese nt Illness right hand pain Ms Torres is a 66 year old female who is here for a follow up of right hand pain. She presents with pain on the right side. right hand pain Ms Torres is a 66 year old female who is here for a follow up of right hand pain. She presents with pain on the right side. right hand pain Ms Torres is a 66 year old female who is here for a follow up of right hand pain. She presents with pain on the right side. right hand pain Ms Torres is a 66 year old female who complains of right hand pain. She presents with pain on the right side. right hand pain Dhaval Pagan nd is a 65 year old female. She presents with pain on the right side. She states that the symptoms have been chronic non-traumatic. Currently the patient states that the symptoms are moderate. foot pain on the rig ht greater than the left Dhaval Torres is a 64 year old female. She presents with pain on the right greater than the left. She states that the symptoms have been chronic non-traumatic. left knee pain Dhaval Pagan nd is a 63 year old female. She presents with pain on the left side. She states that the symptoms have been chronic non-traumatic. left knee pain Dhaval Pagan nd is a 63 year old female. She presents with pain on the left side. She states that the symptoms have been chronic non-traumatic. left knee pain Dhaval Pagan nd is a 63 year old female. She presents with pain on the left side. She states that the symptoms have been chronic non-traumatic. left knee pain Dhaval Pagan nd is a 63 year old female. She presents with pain, decreased rom and crepitus on the left side. Functional Status Date Functional Assessmen t No Information Instructions Date Instruction Cheyanne king Schedule follow up a ppointment as per doctor's request. Related to Right hand pain Patient instructed i n aftercare following procedure. Related to Right hand pain Patient educated reg arding plan of care and treatment plan. Related to Right hand pain Patient educated reg arding today's diagnosis. Related to Right hand pain Schedule follow up a ppointment as per doctor's request. Related to Finger pain, right Patient educated reg arding plan of care and treatment plan. Related to Finger pain, right Patient educated reg arding today's diagnosis. Related to Finger pain, right Patient instructed i n aftercare following procedure. Related to Finger pain, right Schedule follow up a ppointment as per doctor's request. Related to Right hand pain Patient instructed i n aftercare following procedure. Related to Right hand pain Patient educated reg arding plan of care and treatment plan. Related to Right hand pain Patient educated reg arding today's diagnosis. Related to Right hand pain Schedule follow up a ppointment as per doctor's request. Related to Finger pain, right Patient educated reg arding today's diagnosis. Related to Finger pain, right Patient instructed i n aftercare following procedure. Related to Finger pain, right Patient educated reg arding plan of care and treatment plan. Related to Finger pain, right The patient verbaliz ed an understanding of the plan. Related to Right hand pain The patient verbaliz ed an understanding of the plan. Related to Pain in rt foot as per medical report. Related t o Pain Knee/Patella/Tibia/LL Patient instructed i n aftercare following procedure. Related to Pain Knee/Patella/Tibia/LL Patient educated reg arding today's diagnosis. Related to Pain Knee/Patella/Tibia/LL Examination, Rx. Compound Medica tion. Related to Pain Knee/Patella/Tibia/LL Patient instructed i n aftercare following procedure. Related to Pain Knee/Patella/Tibia/LL Patient educated reg arding today's diagnosis. Related to Pain Knee/Patella/Tibia/LL Physical therapy pro gram, follow up as scheduled. Related to Pain Knee/Patella/Tibia/LL Patient instructed i n aftercare following procedure. Related to Pain Knee/Patella/Tibia/LL Patient educated reg arding today's diagnosis. Related to Pain Knee/Patella/Tibia/LL Assessments Type Assessment Date assessment Right foot pain Patient Care Teams Name Effective Dates (start - stop) Status Members No Information
[2025-03-03 15:09] LABS: Chloride* 102 mmol/L (96-114); Potassium* 4.0 mmol/L (3.6-5.1); Sodium* 134 mmol/L (135-149)
[2025-03-03 15:11] LABS: Blood Urea Nitrogen* 14 mg/dL (7-30); Creatinine* 1.0 mg/dL (0.5-1.5); Estimated Glomerular Filt Rate 59 ml/min
[2025-03-03 15:12] LABS: Anion Gap 6 mEq/L (7-15); Calcium* 8.9 mg/dL (8.4-10.6); Carbon Dioxide* 26 mmol/L (20-32); Glucose* 74 mg/dL (60-115)
--- OUTSIDE RECORDS SUMMARY | 2025-03-04 00:17 | XMS_ITS | Clinical Summary ---
Author Organization [facility] Address [address] [place] [address] Care Team Providers Care Reconciliation Clerk Name Role Phone Unavailable Primary Care Provider Unavailabl e Source Comments Patient records contain information from all sites at [facility]. For routine questions regarding patient records, call [phone] during business hours, M-F 8:00 AM - 5:00 PM Central Time. Record requests for emergency care only can be directed to [phone] at any time.[facility] Social History Tobacco Use Types Packs/Day Years [...] Td Vaccines (1 - Tdap) 03/17/2020 03/16/2020 Mammogram 04/17/2024 04/17/2023, 12/07/2021 Depression Screening (Annual PHQ-2) 07/02/2024 Fall Risk Screen (Annual) 07/02/2024 COVID-19 Vaccine ( season) 2025 11/29/2023, 07/25/2023, 05/22/2022, Additional history exists Influenza Vaccine (#1) 2025 , 03/14/2023, 03/08/2022, [...]
--- OUTSIDE RECORDS SUMMARY | 2025-03-04 00:18 | XMS_ITS | Clinical Summary ---
Author Organization [facility] Address [address] [place] [address] Care Team Providers Care Rn Acute Dialysis Name Role Phone Unavailable Primary Care Provider Unavailabl e Allergies Active Allergy Reactions Criticality Noted Date Comments Codeine Headache 04/19/2021 Grass Pollen Rash 04/19/2021 Medications tamoxifen (NOLVADEX) 20 mg tablet Take 20 mg by mouth once daily. 12/31/19 22 Active cholecalcifer ol 2,000 unit capsule Take 2,000 units by mouth once daily. Active calcium-vitam in D3-vitamin K 650 mg-12.5 mcg-40 mcg chew Chew 4 Tablets by mouth once daily. 01/08/20 25 Active acetaminophen SR (Tylenol Arthritis Pain) 650 mg Extended-Rele ase tablet 1 tablet BID Max acetaminophen dose: 4000mg in 24 hrs. 01/08/20 25 Active potassium chloride (K-TAB) 10 mEq extended-rele ase tabletIndicat ions:Hypokale carmen TAKE 1 TABLET BY MOUTH ONCE DAILY WITH A MEAL 180 Tablet 3 02/08/20 24 2024 Discontinued(* Med complete/Regim en complete/Level of care change) levothyroxine (SYNTHROID) 75 mcg tabletIndicat ions:Hypothyr oidism (acquired) Take 1 Tablet (75 mcg) by mouth before breakfast. 90 Tablet 3 07/01/20 24 2024 Discontinued(* Med complete/Regim en complete/Level of care change) Benazepril HCl 40 mg tabletIndicat ions:HTN (hypertension ) TAKE 1 TABLET(40 MG) BY MOUTH DAILY 90 Tablet 1 07/27/19 25 2024 Discontinued venlafaxine (EFFEXOR) 100 mg tabletIndicat ions:Depressi on, recurrent Take 1 Tablet (100 mg) by mouth two times daily with meals. Dose decrease as of 09/02/2024 180 Tablet 09/03/19 25 2024 Discontinued(R eorder (E-cancel not sent)) venlafaxine (EFFEXOR) 100 mg tabletIndicat ions:Depressi on, recurrent Take 1 Tablet (100 mg) by mouth two times daily with meals. Dose decrease as of 09/02/2024 180 Tablet 02/05/20 25 2024 Discontinued(* Med complete/Regim en complete/Level of care change) Benazepril HCl 40 mg tabletIndicat ions:HTN (hypertension ) TAKE 1 TABLET(40 MG) BY MOUTH DAILY 90 Tablet 02/11/20 25 2024 Discontinued(* Medication adjustment) Active Problems Problem Noted Date Diagnosed Date [...] Encounters Date Type Department Care Team Description 02/16/2025 Telephone [facility] [address] [place] [address] Key Perez, Error-please disregard 02/07/2025 Refill [facility] [address] [place] [address] Key Perez DO Refill Request (Benazepril Hcl) 02/02/2025 Refill [facility] [address] [facility] [place] [address] Key Perez DO Refill Request (Venlafaxine) 01/07/2025 Telephone [facility] [address] [facility] [address] Key Perez DO Medication Management (clarifications ) 01/06/2025 Telephone [facility] [address] [place] [address] Key Perez DO Form (Scanned orders on 01/05) 12/29/2024 10:30 AM CDT Nurse/Clinic Staff Only [facility] [address] [facility] [place] [address] Immunization/Inject ion (Prolia injection) 12/29/2024 Travel 12/22/2024 Telephone [facility] [address] [place] [address] Key Perez DO Medication Management from Last 3 Months Immunizations Immunization Administration [...] CDT Oxygen Saturation 99% 09/02/2024 10:59 AM TOOL STRAIGHTENER Inhaled Oxygen Concentration - - Weight 56.7 kg (125 lb) 09/30/2024 11:27 AM CDT Height 158.1 cm (5' 2.24) 05/12/2024 1:31 PM CS T Body Mass Index 22.68 05/12/2024 1:31 PM TOOL STRAIGHTENER Plan of Treatment Health Maintenance Due Date Last Done Comments Lipids for age 45-75 10/06/1995 Colonoscopy through age 75 03/24/202403/24, 03/24/2021 (Completed outside of [facility]) COVID-19 vaccine series (8 - Mixed Product [...] Procedure Name Priority Date/Time Associated Diagnosis Comments SCAN-MAMMOGRAPHY REPORT 11/21/2023 12:00 AM CDT LC HCV ANTIBODY RFX TO QUANT PCR Routine 01/23/2023 12:00 PM CDT Need for hepatitis C screening test XR DXA BONE DENSITY 2 SITES AXIAL Routine 10/30/2022 12:00 PM CDT Osteoporosis, unspecified osteoporosis type, unspecified pathological fracture presence SCAN-COLONOSCOPY 03/24/2021 12:0 0 AM CDT from Last 3 Months or Most Recently Relevant to Health Maintenance Results * SCAN-MAMMOGRAPHY REPORT (11/21/2023 12:00 AM CDT) Anatomical Region Laterality Modality Other us Scanner OTHER Final Result * LC HCV ANTIBODY RFX TO QUANT PCR (01/23/2023 12:00 PM CDT) HCV Ab Non Reactive Non Reactive 01/25/2023 1:[address] [facility] Blood BLOOD SPECIMEN / Unknown Venipuncture / Unknown 01/23/2023 12:00 PM CDT 01/23/2023 12:[address] [facility] ([facility] - 01/25/2023 1:09 PM CDT Performed at: [address] [place] [address] [place] [id number] Kalsominer: Donato Rendon MD, Phone: [phone] us Key Perez DO LABORATORY Final Resu lt [facility] ([facility]) [address] [place] [id number], * (ABNORMAL) XR DXA BONE DENSITY 2 [...] to assess therapeutic efficacy. Randi Martinez PA-C [facility] 11/01/2022 Narrative 11/01/2022 1:02 PM CDT For Patients: Results are automatically released to your [facility] ([employer]) account once available, in compliance with federal regulations. This means that you may see your results before your provider has had a chance to review them. Please allow 2-3 business days for your provider to comment on the results. XR DXA Bone Mineral Density (BMD) EXAM LOCATION: [address] [address] PATIENT NAME: Dhaval Torres DATE OF : [...] two scanners are made by the same bodybuilder. 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
== END 2025-03-03 13:49 | disposition home or self-care (01) ==
LOC: NPINS 13:48
PROVIDERS: PCP Family Medicine; Visit Provider Family Medicine
DX: I10 Essential (primary) hypertension (principal); Z91.148 Patient's other noncompliance with medication regimen for other reason
CPT/HCPCS: 80048

== ENCOUNTER 2025-03-07 16:02 | Outpatient (CLI) | payer MEDICARE, BC, SELFPAY | END 2025-03-07 16:03 | disposition home or self-care (01) | LOC: AMB 03-12 09:31 | PROVIDERS: PCP Family Medicine; Visit Provider Internal Medicine | DX: T14.90XA Injury, unspecified, initial encounter (principal); W18.30XA Fall on same level, unspecified, initial encounter; Y92.129 Unspecified place in nursing home as the place of occurrence of the external cause | CPT/HCPCS: A0425; A0427 ==

== ENCOUNTER 2025-03-07 16:23 | Emergency (ER) | payer MEDICARE, BC, SELFPAY ==
--- OUTSIDE RECORDS SUMMARY | 2020-03-30 06:30 | XMS_ITS | Continuity of Care Document ---
Author Organization [facility] Address [address] [place] [address] Phone Care Team Providers Care Retail Loss Prevention Specialist Name Role Phone Chito Johns MD Unavailable Unavailable Allergies, Adverse Reactions, Alerts Substance Reaction Status Criticality codeine Unknown Active No Information Medications Medication Instructions Dosage Effective Dates (start - stop) Status Comments Edgar 5 mg-325 mg tablet take 1 tablet [...] Diagnoses Date Provider Providers Copied on Encounter [facility], [address] [place] [address], [id number], tel:[phone] [address] [place] [address] Right foot pain Sep-2 0 Nat Dale. [address] [place] [address], [id number] , [place]. tel:[phone] Referring Provider: Chito Tracey, [address] [place] [address], [id number] . tel:[phone] [facility], [address] [place] [address], [id number], tel:[phone] [facility] Right foot pain Sep-0 0 Nat Dale. [address] [place] [address], [id number] , . tel:[phone] Referring Provider: Chito Tracey, [address] [place] [address], [id number] . tel:[phone] [facility], [address] [place] [address], [id number], tel:[phone] [address] [place] [address] No Information Jan- 0 Nat Dale. [address] [place] [address], [id number] , [place]. tel:[phone] Referring Provider: Chito Tracey, [address] [place] [address], [id number] . tel:[phone] [facility], [address] [place] [address], [id number], [place] tel:[phone] [facility] No Information 0 Nat Dale. [address] [place] [address], [id number] , [place]. [phone] Office/Estab Detailed [facility], [address] [place] [address], [id number], [place] tel:[phone] [facility] Right foot pain 0 Nat Dale. [address] [place] [address], [id number] , [place]. tel:[phone] Referring Provider: Chito Tracey, [address] [place] [address], [id number] . tel:[phone] [facility], [address] [place] [address], [id number], [place] tel:[phone] [facility] right hand pain (chief complaint) Right hand pain 8 Carline Smith. [address] [place] [address], [id number] , [place]. tel:[phone] Referring Provider: Luis Crowley, [address] [place] [address], [id number] . tel:[phone] [facility], [address] [place] [address], [id number], [place] tel:[phone] [facility] right hand pain (chief complaint) Finger pain, right Jun- 7 Carline Smith. [address] [place] [address], [id number] , [place]. tel:[phone] Referring Provider: Luis Crowley, [address] [place] [address], [id number] . tel:[phone] [facility], [address] [place] [address], [id number], tel:[phone] [address] [place] [address] [facility] No Information 7 Carline Smith. [address] [place] [address], [id number] , . tel:[phone] Referring Provider: Luis Crowley, [address] [place] [address], [id number] . tel:[phone] [facility], [address] [place] [address], [id number], tel:[phone] [facility] right hand pain (chief complaint) Right hand pain 7 Carline Smith. [address] [place] [address], [id number] , . tel:[phone] Referring Provider: Luis Crowley, [address] [place] [address], [id number] . tel:[phone] Office/New Detailed OP [facility], [address] [place] [address], [id number], tel:[phone] [facility] right hand pain (chief complaint) Finger pain, right 7 Carline Smith. [address] [place] [address], [id number] , [place]. tel:[phone] Referring Provider: Luis Crowley, [address] [place] [address], [id number] . tel:[phone] Office/Estab Detailed [facility], [address] [place] [address], [id number], tel:[phone] [facility] right hand pain (chief complaint) Right hand pain 7 Marcelino Ludwig. [address] [place] [address], [id number] , [place]. tel:[phone] Referring Provider: Oziel Cardenas, [address] [place] [address], [id number] . tel:[phone] Office/Estab Detailed Visit [facility], [address] [place] [address], [id number], tel:[phone] [facility] foot pain on the right greater than the left (chief complaint) Pain in rt foot 5 Marcelino Ludwig. [address] [place] [address], [id number] , [place]. tel:[phone] Referring Provider: Oziel Benson MD W, [address] [place] [address], [id number] . tel:[phone] Office/Estab Expanded Visit [facility], [address] [place] [address], [id number], tel:[phone] [facility] left knee pain (chief complaint) No Information 5 Marcelino Ludwig. [address] [place] [address], [id number] , [place]. tel:[phone] Referring Provider: Oziel Benson MD W, [address] [place] [address], [address] . tel:[phone] Office/Estab Expanded Visit [facility], [address] [place] [address], [id number], tel:[phone] [facility] left knee pain (chief complaint) Pain Knee/Patella /Tibia/LL 4 Marcelino Ludwig. [address] [place] [address], [id number] , [place]. tel:[phone] Referring Provider: Oziel Cardenas, [address] [place] [address], [id number] . tel:[phone] Office/Estab Expanded Visit [facility], [address] [place] [address], [id number], tel:[phone] [facility] left knee pain (chief complaint) Pain Knee/Patella /Tibia/LL 4 Marcelino Ludwig. [address] [place] [address], [id number] , . tel:[phone] Referring Provider: Oziel Cardenas, [address] [place] [address], [id number] . tel:[phone] Office/New Detailed OP Visit [facility], [address] [place] [address], [id number], tel:[phone] [facility] left knee pain (chief complaint) Pain Knee/Patella /Tibia/LL 4 Marcelino Ludwig. [address] [place] [address], [id number] , [place]. tel:[phone] Referring Provider: Oziel Cardenas, [address] [place] [address], [id number] . tel:[phone] Family History Family Member Type Diagnosis Age At Onset Father Problem (finding) osteoarthritis Mother Problem (finding) osteoarthritis Payers Payer name Insurance type Covered democrat ID Authorkarlowanda zacharydeepali(s) [employer] PPO CI [id number] Social History Type Description Quantity Date Captured [...] request. Related to Right hand pain Patient educated reg arding today's diagnosis. Related to Right hand pain Patient educated reg arding plan of care and treatment plan. Related to Right hand pain Patient instructed i n aftercare following procedure. Related to Right hand pain Schedule follow up a ppointment as per doctor's request. Related to Finger pain, right Patient instructed i n aftercare following procedure. Related to Finger pain, right Patient educated reg arding today's diagnosis. Related to Finger pain, right Patient educated reg arding plan of care and treatment plan. Related to Finger pain, right Schedule follow up a ppointment as per doctor's request. Related to Right hand pain Patient educated reg arding today's diagnosis. Related to Right hand pain Patient educated reg arding plan of care and treatment plan. Related to Right hand pain Patient instructed i n aftercare following procedure. Related to Right hand pain Schedule follow up a ppointment as per doctor's request. Related to Finger pain, right Patient educated reg arding plan of care and treatment plan. Related to Finger pain, right Patient instructed i n aftercare following procedure. Related to Finger pain, right Patient educated reg arding today's diagnosis. Related to Finger pain, right The patient verbaliz ed an understanding of the plan. Related to Right hand pain The patient verbaliz ed an understanding of the plan. Related to Pain in rt foot as per medical report. Related t o Pain Knee/Patella/Tibia/LL Patient educated reg arding today's diagnosis. Related to Pain Knee/Patella/Tibia/LL Patient instructed i n aftercare following procedure. Related to Pain Knee/Patella/Tibia/LL Examination, Rx. Compound Medica tion. Related to Pain Knee/Patella/Tibia/LL Patient educated reg arding today's diagnosis. Related to Pain Knee/Patella/Tibia/LL Patient instructed i n aftercare following procedure. Related to Pain Knee/Patella/Tibia/LL Physical therapy pro gram, follow up as scheduled. Related to Pain Knee/Patella/Tibia/LL Patient educated reg arding today's diagnosis. Related to Pain Knee/Patella/Tibia/LL Patient instructed i n aftercare following procedure. Related to Pain Knee/Patella/Tibia/LL Assessments Type Assessment Date assessment Right foot pain Patient Care Teams Name Effective Dates (start - stop) Status Members No Information
--- OUTSIDE RECORDS SUMMARY | 2020-03-30 06:30 | XMS_ITS | Continuity of Care Document ---
Author Organization [facility] Address [address] [place] [id number] Phone Care Team Providers Care Communications Systems Engineer Name Role Phone Chito Johns MD Unavailable Unavailable Allergies, Adverse Reactions, Alerts Substance Reaction Status Criticality codeine Unknown Active No Information Medications Medication Instructions Dosage Effective Dates (start - stop) Status Comments Rudd 5 mg-325 mg tablet take 1 tablet [...] Diagnoses Date Provider Providers Copied on Encounter [facility], [address] [place] [address], [id number], tel:[phone] [address] [place] [address] Right foot pain Sep-2 0 Nat Dale. [address] [place] [address], [id number] , [place]. tel:[phone] Referring Provider: Chito Tracey, [address] [place] [address], [id number] . tel:[phone] [facility], [address] [place] [address], [id number], tel:[phone] [facility] Right foot pain Sep-0 0 Nat Dale. [address] [place] [address], [id number] , . tel:[phone] Referring Provider: Chito Tracey, [address] [place] [address], [id number] . tel:[phone] [facility], [address] [place] [address], [id number], tel:[phone] [address] [place] [address] No Information Jan- 0 Nat Dale. [address] [place] [address], [id number] , [place]. tel:[phone] Referring Provider: Chito Tracey, [address] [place] [address], [id number] . tel:[phone] [facility], [address] [place] [address], [id number], [place] tel:[phone] [facility] No Information 0 Nat Dale. [address] [place] [address], [id number] , [place]. tel:[phone] Office/Estab Detailed [facility], [address] [place] [address], [id number], [place] tel:[phone] [facility] Right foot pain 0 Nat Dale. [address] [place] [address], [id number] , [place]. tel:[phone] Referring Provider: Chito Tracey, [address] [place] [address], [id number] . tel:[phone] [facility], [address] [place] [address], [id number], [place] tel:[phone] [facility] right hand pain (chief complaint) Right hand pain 8 Carline Smith. [address] [place] [address], [id number] , [place]. tel:[phone] Referring Provider: Luis Crowley, [address] [place] [address], [id number] . tel:[phone] [facility], [address] [place] [address], [id number], [place] tel:[phone] [facility] right hand pain (chief complaint) Finger pain, right Jun- 7 Carline Smith. [address] [place] [address], [id number] , [place]. tel:[phone] Referring Provider: Luis Crowley, [address] [place] [address], [id number] . tel:[phone] [facility], [address] [place] [address], [id number], tel:[phone] [address] [place] [address] [facility] No Information 7 Carline Smith. [address] [place] [address], [id number] , . tel:[phone] Referring Provider: Luis Crowley, [address] [place] [address], [id number] . tel:[phone] [facility], [address] [place] [address], [id number], tel:[phone] [facility] right hand pain (chief complaint) Right hand pain 7 Carline Smith. [address] [place] [address], [id number] , . tel:[phone] Referring Provider: Luis Crowley, [address] [place] [address], [id number] . tel:[phone] Office/New Detailed OP [facility], [address] [place] [address], [id number], tel:[phone] [facility] right hand pain (chief complaint) Finger pain, right 7 Carline Smith. [address] [place] [address], [id number] , [place]. tel:[phone] Referring Provider: Luis Crowley, [address] [place] [address], [id number] . tel:[phone] Office/Estab Detailed [facility], [address] [place] [address], [id number], tel:[phone] [facility] right hand pain (chief complaint) Right hand pain 7 Marcelino Ludwig. [address] [place] [address], [id number] , [place]. tel:[phone] Referring Provider: Oziel Cardenas, [address] [place] [address], [id number] . tel:[phone] Office/Estab Detailed Visit [facility], [address] [place] [address], [id number], tel:[phone] [facility] foot pain on the right greater than the left (chief complaint) Pain in rt foot 5 Marcelino Ludwig. [address] [place] [address], [id number] , [place]. tel:[phone] Referring Provider: Oziel Benson MD W, [address] [place] [address], [id number] . tel:[phone] Office/Estab Expanded Visit [facility], [address] [place] [address], [id number], tel:[phone] [facility] left knee pain (chief complaint) No Information 5 Marcelino Ludwig. [address] [place] [address], [id number] , [place]. tel:[phone] Referring Provider: Oziel Benson MD W, [address] [place] [address], [id number] . tel:[phone] Office/Estab Expanded Visit [facility], [address] [place] [address], [id number], tel:[phone] [facility] left knee pain (chief complaint) Pain Knee/Patella /Tibia/LL 4 Marcelino Ludwig. [address] [place] [address], [id number] , [place]. tel:[phone] Referring Provider: Oziel Cardenas, [address] [place] [address], [id number] . tel:[phone] Office/Estab Expanded Visit [facility], [address] [place] [address], [id number], tel:[phone] [facility] left knee pain (chief complaint) Pain Knee/Patella /Tibia/LL 4 Marcelino Ludwig. [address] [place] [address], [id number] , . tel:[phone] Referring Provider: Oziel Cardenas, [address] [place] [address], [id number] . tel:[phone] Office/New Detailed OP Visit [facility], [address] [place] [address], [id number], tel:[phone] [facility] left knee pain (chief complaint) Pain Knee/Patella /Tibia/LL 4 Marcelino Ludwig. [address] [place] [address], [id number] , [place]. tel:[phone] Referring Provider: Oziel Cardenas, [address] [place] [address], [id number] . tel:[phone] Family History Family Member Type Diagnosis Age At Onset Father Problem (finding) osteoarthritis Mother Problem (finding) osteoarthritis Payers Payer name Insurance type Covered libertarian ID Authorkarlowanda zacharydeepali(s) [employer] [facility] PPO CI [id number] Social History Type Description Quantity Date Captured [...]
--- OUTSIDE RECORDS SUMMARY | 2025-03-07 16:25 | XMS_ITS | Clinical Summary ---
Author Organization [facility] Address [address] [place] [id number] Care Team Providers Care Youth Liaison Officer Name Role Phone Unavailable Primary Care Provider Unavailabl e Source Comments Patient records contain information from all sites at [facility]. For routine questions regarding patient records, call [phone] during business hours, M-F 8:00 AM - 5:00 PM Central Time. Record requests for emergency care only can be directed to [phone] at any time.[facility] Social History Tobacco Use Types Packs/Day Years [...]
--- OUTSIDE RECORDS SUMMARY | 2025-03-07 16:25 | XMS_ITS | Clinical Summary ---
Author Organization [facility] Address [address] [place] [address] Care Team Providers Care Inspector Elevators Name Role Phone Unavailable Primary Care Provider [...] Dose decrease as of 09/02/2024 180 Tablet 02/05/202024 Discontinued(* Med complete/Regim en complete/Level of care change) Benazepril HCl 40 mg tabletIndicat ions:HTN (hypertension ) TAKE 1 TABLET(40 MG) BY MOUTH DAILY 90 Tablet 02/11/202024 Discontinued(* Medication adjustment) Active Problems Problem Noted [...] Type Department Care Team Description 02/16/2025 Telephone [facility] [address] [place] [address] Key Perez DO Error-please disregard 02/07/2025 Refill [facility] [address] [place] [address] Key Perez DO Refill Request (Benazepril Hcl) 02/02/2025 Refill [facility] [address] [place] [address] Key Perez DO Refill Request (Venlafaxine) 01/07/2025 Telephone [facility] [address] [place] [address] Key Perez DO Medication Management (clarifications ) 01/06/2025 Telephone [facility] [address] [place] [address] Key Perez DO Form (Scanned orders on 01/05) 12/29/2024 10:30 AM CDT Nurse/Clinic Staff Only [facility] [address] [place] [address] Immunization/Inject ion (Prolia injection) 12/29/2024 Travel 12/22/2024 Telephone [facility] [address] [place] [address] [address] Key Perez DO Medication Management from Last 3 Months Immunizations Immunization Administration Dates Next Due COVID-19 VACCINE SPIKEVAX (M ODERNA 50MCG/0.5ML) 12YO+ PFS 11/29/2023,07/25/2023 COVID-19 vaccine (Moderna 100mcg/0.5mL) PF, MDV 09/26/2020,08/29/2020 COVID-19 vaccine ([employer] 30mcg/0.3mL) P F, MDV 06/22/2021 Influenza, High-dose [...] CDT Oxygen Saturation 99% 09/02/2024 10:59 AM HOSTAGE NEGOTIATOR Inhaled Oxygen Concentration - - Weight 56.7 kg (125 lb) 09/30/2024 11:27 AM CDT Height 158.1 cm (5' 2.24) 05/12/2024 1:31 PM CS T Body Mass Index 22.68 05/12/2024 1:31 PM HOSTAGE NEGOTIATOR Plan of Treatment Health Maintenance Due Date Last Done Comments Lipids for age 45-75 10/06/1995 Colonoscopy through age 75 03/24/202403/24, 03/24/2021 [facility] Mammogram for age 45-75 11/20/2024 11/21/19 24, 04/30/2023, 04/17/2023, Additional history exists COVID-19 vaccine series (8 - Mixed Product risk season) 2025 03/06/2024, 11/29/2023, 07/25/2023, Additional history exists Influenza Vaccine (#1) 2025 [...] Reactive Non Reactive 01/25/2023 1:09 PM CDT [facility] ([facility]) Blood BLOOD SPECIMEN / Unknown Venipuncture / Unknown 01/23/2023 12:00 PM CDT 01/23/2023 12:02 PM CDT Narrative [facility] ([facility] - 01/25/2023 1:09 PM CDT Performed at: - [facility] [address] [place] [id number] Filter Tank Operator: Donato Rendon MD, Phone: [phone] Key Perez DO LABORATORY Final Resu lt [facility] ([facility]) [address] [place] [phone], * (ABNORMAL) XR DXA BONE DENSITY 2 [...] to assess therapeutic efficacy. Randi Martinez PA-C [facility] 11/01/2022 Narrative 11/01/2022 1:02 PM CDT For Patients: Results are automatically released to your [facility] ([employer]) account once available, in compliance with federal regulations. This means that you may see your results before your provider has had a chance to review them. Please allow 2-3 business days for your provider to comment on the results. XR DXA Bone Mineral Density (BMD) EXAM LOCATION: [facility] [address] [facility] [address] PATIENT NAME: Dhaval Torres DATE OF : [...] two scanners are made by the same biofuels technology development manager. 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
[2025-03-07 16:32] VITALS: BP 125/85; PULSE 77; RESP 18; TEMP 36.2; O2SAT 100
--- NOTE | 2025-03-07 18:27 | ED_ITS ---
HPI - General Adult General Date Seen: 03/07/25 Chief complaint: Fall/Minor Trauma Stated complaint: Fall Time Seen by Provider: 03/07/25 16:42 History of Present Illness HPI narrative: 74-year-old female with a history of dementia. She had an unwitnessed fall at her [facility]. Staff heard her fall hit the floor. They arrived immediately and she was alert. She was on her buttocks. She is now complaining of buttock pain. EMS was called. They reported that she was able to stand the patient was able to transfer to their cot with full weight-bearing. Although she has dementia she is normally able to walk independently in the hallway. Per review of medical record she has been seen by Oncology for breast cancer. She has had invasive ductal carcinoma of the left breast. She has had a previous left mastectomy. Also previous gastric bypass. History is limited from the patient because of her dementia. She is polite and follows simple commands but is not really able to provide any meaningful history. History is obtained partly from EMS report and partly from the patient's sister. Her sister is her power of associate attorney and received direct phone call information from the patient's nurses at her [facility]. History from the sister is that s he normally ambulates independently in the hallway. This afternoon she had an unwitnessed fall that was heard by the nurses. She fell on the carpeted hallway outside room 102. She was on the floor. She seemed to be in pain. She was complaining of headache. She vomited once (nonbloody). Also complaining of left buttock pain. When they sat her up she vomited again. Sister also notes that she does have advancing dementia. She has had recent trouble with poor appetite, decreased oral intake. She had some labs done by the [facility] last week that were apparently normal. She has apparently had fairly extensive workups for this GI problem in the past without any clear cause. Sister notes recently decreasing appetite and decreased oral intake. When we discussed this, sister also notes that he has pulsing she mostly wants supportive care and comfort care. She would not want any heroic interventions such as feeding tubes, surgery or life support. Per oncology notes ...is a 73 yo woman with stage IB pT2N0 Gr2 ERPR+ [id number] carcinoma of?left breast?s/p nipple-sparing mastectomy 06/2019. Ki-67 of 21%; oncotype of 20. Started anastrozole 08/2019; switched to tamoxifen at some point due to osteoporosis and compression fractures. RT completed 10/30/2019. Medical history complicated by dementia. in 2023 she has completed an extensive workup for weight loss. There is no evidence of metastatic malignancy based on this workup. CT chest and bone scan were personally reviewed. Also reviewed imaging with oncologist and with [facility] group given fractures and images had been ordered specifically to consider metastatic disease. Today, no evidence of disease on clinical exam. - Continue tamoxifen daily for 10 years given positive results from breast cancer index testing, which we reviewed in clinic today. Last seen in [employer] with Dr. Alcaraz - Recommend screening right-sided mammogram will be due November 2024 - Bisphosphonates for osteoporosis/compression fractures will be managed by PCP at [facility] going forward. Last DEXA 10/2022 with T-score of -3.3. - Memory concerns followed by PCP; April 2022 MRI brain unrevealing for metast atic disease. - Return to clinic in in 6-12 months for repeat clinical breast exam and assessment Related Data Home Medications ?Medication ?Instructions ?Recorded ?Confirmed cholecalciferol (vitamin D3) 50 50 mcg PO QDAY 3 08/11/24 mcg (2,000 unit) capsule potassium chloride 10 mEq 10 meq PO QDAY 09/22/2208/02 capsule,extended release levothyroxine 88 mcg capsule 88 mcg PO QDAY 08/09/23 0 08/11/24 acetaminophen 325 mg capsule 650 mg PO BID 11/08/23 (Tylenol) benazepril 40 mg tablet 40 mg PO QHS 11/08/23 calcium citrate 400 mg PO QDAY 08/11/2408/02 venlafaxine 75 mg tablet 125 mg PO BID 08/11/2408/11 Previous Rx's ?Medication ?Instructions ?Recorded tamoxifen 20 mg tablet 20 mg PO QDAY #90 tabs 12/01 Allergies Allergy/AdvReac Type Severity Reaction Status Date / Time codeine Allergy Mild Headache Verified 08/11/24 10:44 [facility] Medical History (Updated 03/07/25 @ 20:16 by [place] MD) COVID-19 ?U07.1 - COVID-19 (ICD-10) Osteoporosis ?M81.0 - Age-related osteoporosis without current pathological fracture (ICD- 10) Invasive ductal carcinoma of left breast ?C50.912 - Malignant neoplasm of unspecified site of left female breast (ICD- 10) Surgical History (Updated 10/03/23 @ 09:15 by Nabila Alcaraz MD) History of left mastectomy (~2018) ?Z90.12 - Acquired absence of left breast and nipple (ICD-10) History of gastric bypass (~2006) ?Z98.84 - Bariatric surgery status (ICD-10) Social History Smoking Status: Never smoker How often do you have a drink containing alcohol: monthly or less How often do you have six or more drinks on one occasion: Never AUDIT-C Alcohol total score: 1 Non-prescribed substance use: denies use service: No Exam Narrative: Exam Narrative: Constitutional: Appears well-developed and well-nourished. Alert. Cooperative and alert but unable to answer questions about what happened prior to arrival. This is her baseline mental status because of her advancing dementia.. Non toxic. HENT: Head: Complains of her right frontal headache. No depressed skull fracture, Raccoon Eyes, Alexander's sign, or hemotympanum. Face normal. TMs normal. Nose: Nose normal. Mouth/Throat: Oral mucosa is clear and moist. no trismus. Pharynx normal. Tonsils symmetric. No tonsillar enlargement, erythema, or exudate. Eyes: Conjunctivae normal. EOM normal. Pupils equal, round, and reactive to light. No scleral icterus. Neck: Normal range of motion. Neck supple. No tracheal deviation present. No posterior midline tenderness or step-off. Cardiovascular: Normal rate, regular rhythm. No gallop. No friction rub. No murmur heard. Symmetric radial artery pulses Pulmonary/Chest: Effort normal. No stridor. No respiratory distress. No wheezes. No rales. No rhonchi . No tenderness. Abdominal: Soft. Bowel sounds normal. No distension. No mass. No tenderness. No rebound. No guarding. Musculoskeletal: No T or L-spine tenderness. RUE: Normal range of motion. No tenderness. No deformity LUE: Normal range of motion. No tenderness. No deformity RLE: Normal range of motion. No edema. No tenderness. No deformity LLE: Normal range of motion. No edema. No tenderness. No deformity Pelvis is stable. No bruising of her hips. Normal range of motion in both hips to about 90? of flexion. She apparently had tenderness over left buttock at home but is not tender on my exam. Neurological: She is alert. She is oriented to person and place but not date. This is her baseline for dementia. Speech is slow but fluent. No slurred speech. No facial droop. Extraocular movements are grossly intact but she has trouble cooperating with EOMs. Tongue protrudes in the midline. Palate elevates symmetrically. Strength 5/5 bilaterally in the deltoids, biceps, triceps, propellant charge zone assembler, psoas, quad, hamstring, gastrocnemius, tibialis anterior. Intact sensory function to light touch in all 4 extremities. Skin: Skin is warm and dry. No rash noted. No pallor. Normal capillary refill. Psychiatric: Normal mood. Normal affect. Const: Vital Signs, click to edit/add: Vital Signs - 24 hr 03/07/25 16:32 03/07/25 19:28 Temperature 97.1 F L Pulse Rate [Right Pulse Oximeter] 77 77 Respiratory Rate 18 15 Blood Pressure [Ri ght Upper Arm] 125/85 121/82 Pulse Oximetry 100 98 Oxygen Delivery Me thod Room Air Room Air Course Vital Signs Vital signs: Initial Vital Signs Temperature 97.1 F L 03/07/25 16:32 Temperature Source Temporal Artery Scan 03/07/25 16:32 Pulse Rate 77 03/07/25 16:32 Respiratory Rate 18 03/07/25 16:32 Blood Pressure 125/85 03/07/25 16:32 Blood Pressure Mean 98 03/07/25 16:32 Blood Pressure Position Sitting 03/07/25 16:32 Pulse Oximetry 100 03/07/25 16:32 Oxygen Delivery Method Room Air 03/07/25 16:32 Vital Signs Temperature 97.1 F L 03/07/25 16:32 Pulse Rate 77 03/07/25 16:32 Respiratory Rate 18 03/07/25 16:32 Blood Pressure 125/85 03/07/25 16:32 Pulse Oximetry 100 03/07/25 16:32 Oxygen Delivery Method Room Air 03/07/25 16:32 Temperature 97.1 F L 03/07/25 16:32 Pulse Rate 77 03/07/25 19:28 Respiratory Rate 15 03/07/25 19:28 Blood Pressure 121/82 03/07/25 19:28 Pulse Oximetry 98 03/07/25 19:28 Oxygen Delivery Method Room Air 03/07/25 19:28 Medications Administered Medications: Discontinued Medications Generic Name Dose Route Start Last Admin Trade Name Chelle PRN Reason Stop Dose Admin Acetaminophen 1,000 mg 03/07/25 18:49 03/07/25 19:24 Acetaminophen 500 Mg Tablet PO 03/07/25 18:50 1,000 mg ONCE ONE Administration Medical Decision Making MDM Narrative Medical decision making narrative: 74-year-old female with history of advancing dementia presenting to the ER today with her sister who is her power of associate attorney. She had an unwitnessed fall in the hallway of her [facility] today and was sent in because of potential head injury and also because of pelvic/buttock pain after the fall. In terms of her head injury, Differential includes intracranial injuries (e.g. skull fracture, epidural hematoma, subdural hematoma, intracerebral hemorrhage, and traumatic subarachnoid hemorrhage), verses concussion or other traumatic brain injury. CT imaging was obtained and fortunately was normal. At this time it appears that the patient's symptoms are due to a concussion. The patient/family understand that they must return if any red flags appear/develop in the coming hours/days, as this may represent an indication to perform a repeat CT scan or further evaluation. I have noted that red flags include: headaches that get worse, increased drowsiness, strange behavior, repetitive speech, seizures, repeated vomiting, growing confusion, increased irritability, slurred speech, weakness or numbness, and loss of responsiveness. This information will also be provided in writing at discharge. Post concussive syndrome is also discussed. The patient's questions have been answered. They have a responsible adult to accompany them home. In terms of her buttock pain she has a clinically reassuring exam but. X-rays are obtained and are fortunately negative for any acute fracture. I had a long detailed discussion with the patient's sister who is her power of associate attorney. Patient has dementia so is not able to make her own decisions. We discussed that CT scan would be more sensitive for subtle fractures. With the patient's recent poor appetite, CT scan what also show other GI pathology. However the patient's sister says that their goals of care are not to look for any serious intra-abdominal pathology. They would not want surgery for any abdominal findings. Therefore we decided not to do workup for her recent poor appetite. Will hold off on labs or abdomen pelvis CT for now. Imaging Data CT scan - head: Attestation: I have reviewed the pertinent imaging results. Radiologist's impression: FINDINGS: CSF spaces: Within normal limits for age. Brain parenchyma and extra-axial spaces: There are mild nonspecific low attenuation white matter changes consistent with chronic microvascular disease. No sign of mass, hemorrhage, or midline shift. Mild volume loss. Skull base and calvarium: The visualized paranasal sinuses and mastoid air cells demonstrate no acute or significant findings. The visualized orbits are grossly unremarkable status post bilateral lens replacement. No skull fractures. IMPRESSION: No acute intracranial abnormality. XR pelvis: Attestation: I have reviewed the pertinent imaging results. Radiologist's impression: Impression: No acute osseous abnormality. Discharge Plan Discharge Clinical Impression: Fall, Head injury, Pain in pelvis Patient Disposition: Home w/ Parent or Adult Condition: Stable Instructions: Head Injury (DC) Additional Instructions: As we discussed, so far workup looks good. Head CT scan looks normal an x-ray of her pelvis looks good. Monitor carefully and if she has any worsening symptoms or if you have any concerns, please bring her back to the ER or see her doctor right away. Prescriptions: No Action potassium chloride 10 mEq capsule, extended release 10 meq PO QDAY cholecalciferol (vitamin D3) 50 mcg (2,000 unit) capsule 50 mcg PO QDAY acetaminophen [Tylenol] 325 mg capsule 650 mg PO BID venlafaxine 75 mg tablet 125 mg PO BID levothyroxine 88 mcg capsule 88 mcg PO QDAY benazepril 40 mg tablet 40 mg PO QHS calcium citrate 200 mg (950 mg) tablet 400 mg PO QDAY tamoxifen 20 mg tablet 20 mg PO QDAY Qty: 90 3RF Follow Up/Referrals: Bautista Roberts MD [Primary Care Provider, Family Practice] Stand Alone Forms: [employer] Info Instructions
--- NOTE | 2025-03-07 18:48 | CT_ITS ---
Patient: KIMBERLY ANGULO Facility:?[facility] Patient ID:?[id number] Site Patient ID:?[id number]. Site :?[id number] Study:?CT-Head WITHOUT-03/07/2025 7:30:24 PM Ordering Physician:?Xavier Serra Final Report: INDICATION: Fall, head injury, vomiting TECHNIQUE: Head CT without contrast. COMPARISON: None. FINDINGS: CSF spaces: Within normal limits for age. Brain parenchyma and extra-axial spaces: There are mild nonspecific low attenuation white matter changes consistent with chronic microvascular disease. No sign of mass, hemorrhage, or midline shift. Mild volume loss. Skull base and calvarium: The visualized paranasal sinuses and mastoid air cells demonstrate no acute or significant findings. The visualized orbits are grossly unremarkable status post bilateral lens replacement. No skull fractures. IMPRESSION: No acute intracranial abnormality. Please note that all CT scans at this facility use dose modulation, iterative reconstruction, and/or weight-based dosing when appropriate to reduce radiation dose to as low as reasonably achievable. Dictated by Eda Gibson MD @ 03/07/2025 7:42:46 PM Signed by:?Eda Gibson MD @03/07/2025 7:42:46 PM (Electronic Signature)
--- NOTE | 2025-03-07 18:48 | XR_ITS ---
Patient: KIMBERLY ANGULO Facility:?[facility] Patient ID:?[id number] Site Patient ID:?[id number]. Site :?[id number] Study:?XRay-Pelvis 1 VIEW-03/07/2025 7:30:38 PM Ordering Physician:Jey Serra Final Report: Indication: Fall, pelvic pain and left hip pain Technique: Pelvis 1 view. Comparison: None. Findings: Bones: Alignment is normal. No fractures or bone lesions. The bones appear subjectively demineralized. Joint spaces: No substantial joint space narrowing of the hips. Mild degenerative changes of the sacroiliac joints and imaged lower lumbar spine. Soft tissues: Anastomotic bowel staple line projects over the left hemisacrum. Impression: No acute osseous abnormality. Dictated by Eda Gibson MD @ 03/07/2025 7:37:55 PM Signed by:?Eda Gibson MD @03/07/2025 7:37:55 PM (Electronic Signature)
[2025-03-07] MEDS: ACETAMINOPHEN 500 MG TABLET 1000 MG PO (19:24)
[2025-03-07 19:28] VITALS: BP 121/82; PULSE 77; RESP 15; O2SAT 98
[2025-03-07] MEDS: ONDANSETRON ODT 4 MG TAB PO (20:45)
== END 2025-03-07 21:30 | disposition home or self-care (01) ==
PROVIDERS: Emergency Provider Emergency Medicine; PCP Family Medicine
DX: S09.90XA Unspecified injury of head, initial encounter (principal); R10.2 Pelvic and perineal pain; F03.90 Unspecified dementia, unspecified severity, without behavioral disturbance, psychotic disturbance, mood disturbance, and anxiety; W19.XXXA Unspecified fall, initial encounter; Y93.9 Activity, unspecified; Y92.098 Other place in other non-institutional residence as the place of occurrence of the external cause
CPT/HCPCS: 70450; 72170; 99283; 99284; A9270

== ENCOUNTER 2025-05-02 10:55 | Outpatient (CLI) | payer MEDICARE, BC, SELFPAY | END 2025-05-02 10:56 | disposition home or self-care (01) | LOC: AMB 05-16 02:31 | PROVIDERS: PCP Family Medicine; Visit Provider Family Medicine | DX: R55 Syncope and collapse (principal) ==